=== PATIENT | male | born 1945 | race Caucasian/White ===

== ENCOUNTER 2018-04-28 08:48 | Emergency (ER) | payer MEDICARE, OTHER ==
--- NOTE | 2018-04-28 09:24 | EDM.PDOC ---
ED HPI GENERAL MEDICAL PROBLEM - General Chief Complaint: Respiratory Problem Stated Complaint: BAD COUGH Time Seen by Provider: 04/28/18 09:00 - History of Present Illness INITIAL COMMENTS - FREE TEXT/NARRATIVE: HISTORY AND PHYSICAL: History of present illness: Patient's a 72-year-old white male who presents with a concern of cough and cold symptoms over last several weeks no fever chills nausea vomiting or other complaints patient has history of diabetes and had a comprehensive physical recently that was all unremarkable. Review of systems: As per history of present illness and below otherwise all systems reviewed and negative. Past medical history: As per history of present illness and as reviewed below otherwise noncontributory. Surgical history: As per history of present illness and as reviewed below otherwise noncontributory. Social history: No reported history of drug or alcohol abuse. Family history: As per history of present illness and as reviewed below otherwise noncontributory. Physical exam: HEENT: Atraumatic, normocephalic, pupils reactive, negative for conjunctival pallor or scleral icterus, mucous membranes moist, throat clear, neck supple, nontender, trachea midline. Lungs: Clear to auscultation, breath sounds equal bilaterally, chest nontender. Heart: S1S2, regular, negative for clicks, rubs, or JVD. Abdomen: Soft, nondistended, nontender. Negative for masses or hepatosplenomegaly. Negative for costovertebral tenderness. Pelvis: Stable nontender. Genitourinary: Deferred. Rectal: Deferred. Extremities: Atraumatic, negative for cords or calf pain. Neurovascular unremarkable. Neuro: Awake, alert, oriented. Cranial nerves II through XII unremarkable. Cerebellum unremarkable. Motor and sensory unremarkable throughout. Exam nonfocal. Diagnostics: Chest x-ray Therapeutics: None Impression: #1 pneumonitis Definitive disposition and diagnosis as appropriate pending reevaluation and review of above. - Related Data Allergies Allergy/AdvReac Type Severity Reaction Status Date / Time erythromycin base Allergy Difficulty Verified 04/28/18 08:55 Breathing Home Meds: Home Meds Lisinopril 1 tab PO DAILY 04/28/18 [History] Pioglitazone HCl 1 tab PO DAILY 04/28/18 [History] metFORMIN [Glucophage XR] 1 tab PO BID 04/28/18 [History] Past Medical History Cardiovascular History: Reports: Hypertension Endocrine/Metabolic History: Reports: Diabetes, Type II, Obesity/BMI 30+ Social & Family History - Family History Family Medical History: Noncontributory - Tobacco Use Smoking Status *Q: Never Smoker - Recreational Drug Use Recreational Drug Use: No ED ROS GENERAL - Review of Systems Review Of Systems: ROS reveals no pertinent complaints other than HPI. ED EXAM, GENERAL - Physical Exam Exam: See Below (See dictation) Course - Vital Signs Last Recorded V/S: Last Vital Signs Temp 36.4 C 04/28/18 08:48 Pulse 90 04/28/18 10:06 Resp 18 04/28/18 10:06 BP 155/76 H 04/28/18 10:06 Pulse Ox 92 L 04/28/18 10:06 - Orders/Labs/Meds Orders: Active Orders 24 hr Category Date Time Status Chest 2V [CR] Stat Exams 04/28/18 08:57 Taken Departure - Departure Time of Disposition: 18:48 Disposition: Home, Self-Care 01 Condition: Good Clinical Impression: Acute bronchitis - Discharge Information *PRESCRIPTION DRUG MONITORING PROGRAM REVIEWED*: Not Applicable *COPY OF PRESCRIPTION DRUG MONITORING REPORT IN PATIENT GINA: Not Applicable Instructions: Acute Bronchitis, Adult, [id number] Referrals: PCP,None [Primary Care Provider] - Forms: ED Department Discharge Additional Instructions: The following information is given to patients seen in the emergency department who are being discharged to home. This information is to outline your options for follow-up care. We provide all patients seen in our emergency department with a follow-up referral. The need for follow-up, as well as the timing and circumstances, are variable depending upon the specifics of your emergency department visit. If you don't have a primary care physician on staff, we will provide you with a referral. We always advise you to contact your personal physician following an emergency department visit to inform them of the circumstance of the visit and for follow-up with them and/or the need for any referrals to a consulting specialist. The emergency department will also refer you to a specialist when appropriate. This referral assures that you have the opportunity for followup care with a specialist. All of these measure are taken in an effort to provide you with optimal care, which includes your followup. Under all circumstances we always encourage you to contact your private physician who remains a resource for coordinating your care. When calling for followup care, please make the office aware that this follow-up is from your recent emergency room visit. If for any reason you are refused follow-up, please contact the [facility] emergency department at and asked to speak to the emergency department charge nurse. Antibiotics as prescribed. Continue current medications. Follow up with PCP in the next week. Return for worsening symptoms despite treatment. - My Orders Last 24 Hours: My Active Orders 04/28/18 08:57 Chest 2V [CR] Stat - Assessment/Plan Last 24 Hours: My Active Orders 04/28/18 08:57 Chest 2V [CR] Stat
--- NOTE | 2018-04-30 11:01 | CR ---
EXAM DATE: 04/28/18 PATIENT'S AGE: 72 Patient: COLEEN MONTES Facility: [place], [place] Site . Site : 1945 Study: XRay Chest [id number]/18/2018 9:13:03 AM Ordering Physician: Doctor Walter Final Report: INDICATION: cough/congestion/sob for 2 weeks INDICATION: Shortness of breath. Congestion. TECHNIQUE: Chest 2 views. COMPARISON: None FINDINGS: Cardiovascular and mediastinum: Heart size and vasculature are normal in caliber and appearance. Mediastinum is within normal limits. Lungs and pleural spaces: Linear atelectasis or scarring in the lingular segment. Lungs are otherwise clear. No sign of infiltrate or mass. No sign of pleural effusion. No pneumothorax. Bones and soft tissues: Degenerative disc disease throughout the endplates of the thoracic spine. IMPRESSION: No acute airspace disease. Dictated by Kashif Mosquera MD @ 04/28/2018 9:56:48 AM Dictated by: Kashif Mosquera MD @ 04/28/2018 09:56:55 (Electronic Signature) Report Signed by Proxy. [facility]
== END 2018-04-28 10:06 | disposition home or self-care (01) ==
LOC: MW.ED 08:48
DX: J20.9 Acute bronchitis, unspecified (principal); E11.9 Type 2 diabetes mellitus without complications; J18.9 Pneumonia, unspecified organism; Z79.899 Other long term (current) drug therapy; Z88.1 Allergy status to other antibiotic agents
CPT/HCPCS: 71046; 71046-26; 99283

== ENCOUNTER 2018-12-10 08:00 | Inpatient (IN) | payer MEDICARE ==
[~2018-12-10 08:00] MED LIST: ceFAZolin 2 GM in Premix Bag 1 BAG IV SCH
[2018-12-10] MEDS ORDERED: fentaNYL 100 MCG/2 ML SDV ONE (09:37)
[2018-12-10] MEDS ORDERED: Midazolam 1 MG/ML 2 ML SDV ONE ×2 (09:37→10:58)
[2018-12-10] MEDS ORDERED: Propofol 200 MG/20 ML SDV ONE ×2 (09:37→11:59)
--- NOTE | 2018-12-10 10:03 | PCM.PREANE ---
Preanesthetic Assessment - Anesthesia/Transfusion/Family Hx Anesthesia History: Prior Anesthesia Without Reaction Family History of Anesthesia Reaction: No Transfusion History: No Prior Transfusion(s) - Review of Systems General: No Symptoms Pulmonary: No Symptoms Cardiovascular: No Symptoms Gastrointestinal: No Symptoms Neurological: No Symptoms Other: Reports: None - Physical Assessment O2 Sat by Pulse Oximetry: 95 Respiratory Rate: 15 Vital Signs: Last Vital Signs Temp 97.9 F 12/10/18 09:38 Pulse 81 12/10/18 09:38 Resp 15 12/10/18 09:38 BP 176/81 H 12/10/18 09:38 Pulse Ox 95 12/10/18 09:38 Height: 5 ft 8 in Weight: 132.449 kg Mental Status: Alert & Oriented x3 Dentition: Reports: Normal Dentition ROM/Head Extension: Full Lungs: Clear to Auscultation, Normal Respiratory Effort Cardiovascular: Regular Rate, Regular Rhythm - Lab Values: Laboratory Last Values POC Glucose 109 mg/dL (60-110) 12/10/18 09:29 - Allergies Allergies/Adverse Reactions: Allergies Allergy/AdvReac Type Severity Reaction Status Date / Time erythromycin base Allergy Difficulty Verified 12/10/18 09:57 Breathing ibuprofen Allergy gastric Verified 12/10/18 09:58 bleeding - Acknowledgements Anesthesia Type Planned: Spinal Pt an Appropriate Candidate for the Planned Anesthesia: Yes Alternatives and Risks of Anesthesia Discussed w Pt/Guardian: Yes Pt/Guardian Understands and Agrees with Anesthesia Plan: Yes Additional Comments: PMH: dm2 (109), mo, gerd, htn, PLAN: spinal with sedation PreAnesthesia Questionnaire HEENT History: Reports: Other (See Below) Other HEENT History: wears glasses Cardiovascular History: Reports: Hypertension Other Cardiovascular History: edema to lower extremities, wears conpressions socks Respiratory History: Reports: Other (See Below) Other Respiratory History: hx of bronchitis but states is not chronic, has prescribed inhaler but states has not used for "along time" Gastrointestinal History: Reports: GERD, GI Bleed Genitourinary History: Reports: Renal Calculus Musculoskeletal History: Reports: Fracture, Osteoarthritis Other Musculoskeletal History: hx fx wrist, collarbone and leg Neurological History: Reports: None Psychiatric History: Reports: None Endocrine/Metabolic History: Reports: Diabetes, Type II, Obesity/BMI 30+ Hematologic History: Reports: Anemia Immunologic History: Reports: None Oncologic (Cancer) History: Reports: None Dermatologic History: Reports: Other (See Below) Other Dermatologic History: fungus to "sweaty areas" - Past Surgical History Head Surgeries/Procedures: Reports: None HEENT Surgical History: Reports: Cataract Surgery, Tonsillectomy Cardiovascular Surgical History: Reports: None Respiratory Surgical History: Reports: None GI Surgical History: Reports: Colonoscopy, EGD Male Surgical History: Reports: None Neurological Surgical History: Reports: None Musculoskeletal Surgical History: Reports: None Oncologic Surgical History: Reports: None Dermatological Surgical History: Reports: None - SUBSTANCE USE Smoking Status *Q: Never Smoker Recreational Drug Use History: No - HOME MEDS Home Medications: Home Meds Lisinopril 20 mg PO DAILY 04/28/18 [History] Pioglitazone HCl 30 mg PO DAILY 04/28/18 [History] metFORMIN [Glucophage XR] 1,000 mg PO BID 04/28/18 [History] Acetaminophen [Tylenol Arthritis] 2 tab PO QID PRN 12/05/18 [History] Albuterol [Ventolin HFA] 2 puff INH QID PRN 12/05/18 [History] Calcium Citrate/Vitamin D3 [Citracal + D Maximum Caplet] 1 tab PO DAILY [History] Celecoxib 200 - 400 mg PO DAILY PRN 12/05/18 [History] Cinnamon Bark [Cinnamon] 500 mg PO BID 12/05/18 [History] Ferrous Sulfate [Iron] 325 mg PO DAILY 12/05/18 [History] Furosemide 20 mg PO DAILY 12/05/18 [History] HYDROmorphone [Dilaudid] 1 - 3 tab PO BID PRN 12/05/18 [History] Magnesium 250 mg PO DAILY 12/05/18 [History] Omeprazole 20 mg PO ASDIRECTED PRN 12/05/18 [History] traMADol HCl [Tramadol HCl] 50 mg PO BEDTIME PRN 12/05/18 [History] - CURRENT (IN HOUSE) MEDS Current Meds: Current Medications Cefazolin Sodium/Dextrose 2 gm (/ Premix) 50 mls @ 100 mls/hr IV ONETIME GAYLA Discontinued Medications Fentanyl (Sublimaze) Confirm Administered Dose 100 mcg .ROUTE .STK-MED ONE Stop: 12/10/18 09:38 Midazolam HCl (Versed 1 Mg/Ml) Confirm Administered Dose 2 mg .ROUTE .STK-MED ONE Stop: 12/10/18 09:38 Propofol (Diprivan 20 Ml) Confirm Administered Dose 400 mg .ROUTE .STK-MED ONE Stop: 12/10/18 09:38 Tranexamic Acid (Cyklokapron) 2,000 mg IV ONETIME ONE Stop: 12/10/18 07:04
[2018-12-10] MEDS ORDERED: Sodium Chloride 0.9% 20 ML ONE (10:59)
[2018-12-10] MEDS ORDERED: ceFAZolin 1 GM Vial ONE (10:59)
[2018-12-10] MEDS ORDERED: Lidocaine 2% 5 ML SDV ONE (10:59)
[2018-12-10] MEDS ORDERED: Phenylephrine/Normal Saline 100 MCG/ML 10 ML Syringe ONE (11:14)
[2018-12-10] MEDS ORDERED: Ondansetron 4 MG/2 ML SDV ONE (11:46)
[2018-12-10] MEDS ORDERED: Dexamethasone 4 MG/ML 5 ML MDV ONE (11:46)
[2018-12-10] MEDS ORDERED: Phenylephrine 1% 10 MG/ML SDV ONE (11:47)
[2018-12-10] MEDS ORDERED: fentaNYL 100 MCG/2 ML SDV IVPUSH PRN (12:10)
[2018-12-10] MEDS ORDERED: Atropine 1 MG/ML SDV IVPUSH PRN ×2 (12:10)
[2018-12-10] MEDS ORDERED: Naloxone 0.4 MG/ML Syringe IVPUSH PRN (12:10)
[2018-12-10] MEDS ORDERED: 50% Dextrose in Water 50 ML Syringe IVPUSH PRN (12:10)
[2018-12-10] MEDS ORDERED: EPINEPHrine 1 MG/1 ML Amp IVPUSH PRN (12:10)
[2018-12-10] MEDS ORDERED: Albuterol 0.083% 2.5 MG/3 ML Neb Soln NEB PRN (12:10)
--- NOTE | 2018-12-10 12:30 | PCM.OPNOTE ---
- General Post-Op/Procedure Note Date of Surgery/Procedure: 12/10/18 Operative Procedure(s): right anterior total hip arthroplasty Findings: OA/AVN Pre Op Diagnosis: right hip osteoarthritis Post-Op Diagnosis: same Anesthesia Technique: Moderate Sedation, Spinal Primary Surgeon: Smith Gunn Mai Interior Block Wirer: Carlotta Avila Pathology: femoral head EBL in mLs: 400 Complications: none Condition: Good
[2018-12-10] MEDS ORDERED: diphenhydrAMINE 25 MG Cap PO PRN (12:39)
[2018-12-10] MEDS ORDERED: Bisacodyl 10 MG Supp RECTAL PRN (12:39)
[2018-12-10] MEDS ORDERED: Ondansetron 4 MG/2 ML SDV IV PRN (12:39)
[2018-12-10] MEDS ORDERED: Aluminum Hydroxide/Magnesium Hydroxide/Simethicone Susp 30 ML Cup PO PRN (12:39)
[2018-12-10] MEDS ORDERED: HYDROmorphone 2 MG Tab PO PRN (12:42)
[2018-12-10] MEDS ORDERED: Omeprazole 20 MG Cap.CR PO PRN ×2 (12:42→14:15)
[2018-12-10] MEDS ORDERED: Albuterol 8 GM Inhaler INH PRN (12:42)
[2018-12-10] MEDS ORDERED: traMADol 50 MG Tab PO PRN (12:42)
[2018-12-10] MEDS: Ketorolac 15 MG/ML SDV IVPUSH SCH ×3 (13:14→23:34)
--- NOTE | 2018-12-10 13:23 | PCM.POSTAN ---
POST ANESTHESIA ASSESSMENT - MENTAL STATUS Mental Status: Alert, Oriented - RESPIRATORY Respiratory Status: Respiratory Rate WNL, Airway Patent, O2 Saturation Stable, Supplemental Oxygen - CARDIOVASCULAR CV Status: Pulse Rate WNL, Blood Pressure Stable - GASTROINTESTINAL GI Status: No Symptoms - POST OP HYDRATION Hydration Status: Adequate & Stable
[2018-12-10 14:27] LABS: CHLORIDE,CL 103 mmol/L (98-107); SODIUM,NA 140 mmol/L (136-148)
--- NOTE | 2018-12-10 14:31 | PCM.CONS ---
<Ayanna Menjivar M - Last Filed: 12/10/18 14:48> H&P History of Present Illness - General Date of Service: 12/10/18 Admit Problem/Dx: Admission Diagnosis/Problem Admission Diagnosis/Problem Hip replacement planned Source of Information: Patient, Old Records History Limitations: Reports: No Limitations - History of Present Illness Initial Comments - Free Text/Narative: This 73 year old male admitted for R anterior hip arthroplasty with Dr Stanton, Hospitalist service consulted for medical management. Jone recently arrived to Medical floor from PACU. He is alert and oriented, feeling well. Denies any significant pain. No chest pain or SOB. Working on IS. is at bedside. Reports history of HTN and DM type 2, prediabetes. last A1c is 5.7. Doesnt really check BS at home. BP is well controlled as well, 130/70s. He denies history of CAD and No CVA. PCP, Dr Keita - Related Data Allergies/Adverse Reactions: Allergies Allergy/AdvReac Type Severity Reaction Status Date / Time erythromycin base Allergy Difficulty Verified 12/10/18 09:57 Breathing ibuprofen Allergy gastric Verified 12/10/18 09:58 bleeding Home Medications: Home Meds Lisinopril 20 mg PO DAILY 04/28/18 [History] Pioglitazone HCl 30 mg PO DAILY 04/28/18 [History] metFORMIN [Glucophage XR] 1,000 mg PO BID 04/28/18 [History] Acetaminophen [Tylenol Arthritis] 2 tab PO QID PRN 12/05/18 [History] Albuterol [Ventolin HFA] 2 puff INH QID PRN 12/05/18 [History] Calcium Citrate/Vitamin D3 [Citracal + D Maximum Caplet] 1 tab PO DAILY [History] Celecoxib 200 - 400 mg PO DAILY PRN 12/05/18 [History] Cinnamon Bark [Cinnamon] 500 mg PO BID 12/05/18 [History] Ferrous Sulfate [Iron] 325 mg PO DAILY 12/05/18 [History] Furosemide 20 mg PO DAILY 12/05/18 [History] HYDROmorphone [Dilaudid] 1 - 3 tab PO BID PRN 12/05/18 [History] Magnesium 250 mg PO DAILY 12/05/18 [History] Omeprazole 20 mg PO ASDIRECTED PRN 12/05/18 [History] traMADol HCl [Tramadol HCl] 50 mg PO BEDTIME PRN 12/05/18 [History] Past Medical History HEENT History: Reports: Other (See Below) Other HEENT History: wears glasses Cardiovascular History: Reports: Hypertension Other Cardiovascular History: edema to lower extremities, wears conpressions socks Respiratory History: Reports: Other (See Below) Other Respiratory History: hx of bronchitis but states is not chronic, has prescribed inhaler but states has not used for "along time" Gastrointestinal History: Reports: GERD, GI Bleed Genitourinary History: Reports: Renal Calculus Musculoskeletal History: Reports: Fracture, Osteoarthritis Other Musculoskeletal History: hx fx wrist, collarbone and leg Neurological History: Reports: None Psychiatric History: Reports: None Endocrine/Metabolic History: Reports: Diabetes, Type II, Obesity/BMI 30+ Hematologic History: Reports: Anemia Immunologic History: Reports: None Oncologic (Cancer) History: Reports: None Dermatologic History: Reports: Other (See Below) Other Dermatologic History: fungus to "sweaty areas" - Past Surgical History Head Surgeries/Procedures: Reports: None HEENT Surgical History: Reports: Cataract Surgery, Tonsillectomy Cardiovascular Surgical History: Reports: None Respiratory Surgical History: Reports: None GI Surgical History: Reports: Colonoscopy, EGD Male Surgical History: Reports: None Neurological Surgical History: Reports: None Musculoskeletal Surgical History: Reports: None Oncologic Surgical History: Reports: None Dermatological Surgical History: Reports: None Social & Family History - Family History Family Medical History: Noncontributory - Tobacco Use Smoking Status *Q: Never Smoker - Recreational Drug Use Recreational Drug Use: No H&P Review of Systems - Review of Systems: Review Of Systems: See Below General: Reports: No Symptoms. Denies: Fever, Chills, Malaise, Weakness HEENT: Reports: No Symptoms. Denies: Headaches, Sinus Congestion Pulmonary: Reports: No Symptoms. Denies: Shortness of Breath Cardiovascular: Reports: No Symptoms. Denies: Chest Pain, Lightheadedness, Syncope Gastrointestinal: Reports: No Symptoms. Denies: Abdominal Pain, Black Stool, Bloody Stool, Decreased Appetite, Nausea, Vomiting Genitourinary: Reports: No Symptoms. Denies: Dysuria, Frequency, Burning Musculoskeletal: Reports: No Symptoms Skin: Reports: No Symptoms Psychiatric: Reports: No Symptoms Neurological: Reports: No Symptoms Hematologic/Lymphatic: Reports: No Symptoms Immunologic: Reports: No Symptoms Exam - Exam Exam: See Below - Vital Signs Vital Signs: Last Vital Signs Temp 96.4 F 12/10/18 13:48 Pulse 67 12/10/18 13:48 Resp 16 12/10/18 13:48 BP 127/60 12/10/18 13:48 Pulse Ox 97 12/10/18 13:48 Weight: 132.449 kg - Exam General: Alert, Oriented, Cooperative HEENT: Conjunctiva Clear, Mucosa Moist & [place], Pupils Reactive Lungs: Clear to Auscultation, Normal Respiratory Effort Cardiovascular: Regular Rate, Regular Rhythm GI/Abdominal Exam: Normal Bowel Sounds, Soft, Non-Tender Back Exam: Normal Inspection, Full Range of Motion Extremities: Normal Inspection, Normal Range of Motion, Non-Tender, No Pedal Edema Neuro Extensive - Mental Status: Alert, Oriented x3, Normal Mood/Affect Neuro Extensive - Motor, Sensory, Reflexes: CN II-XII Intact Psychiatric: Alert, Normal Affect, Normal Mood - Patient Data Lab Results Last 24 hrs: Laboratory Results - last 24 hr 12/10/18 12/10/18 12/10/18 Range/Units 09:29 13:50 13:50 WBC 8.34 (4.0-11.0) K/uL RBC 4.53 (4.50-5.90) M/uL Hgb 14.9 (13.0-17.0) g/dL Hct 44.6 (38.0-50.0) % MCV 98.5 H (80.0-98.0) fL MCH 32.9 H (27.0-32.0) pg MCHC 33.4 (31.0-37.0) g/dL RDW Std Deviation 45.6 (28.0-62.0) fl RDW Coeff of Shi 13 (11.0-15.0) % Plt Count 217 (150-400) K/uL MPV 9.80 (7.40-12.00) fL Neut % (Auto) 85.7 H (48.0-80.0) % Lymph % (Auto) 9.4 L (16.0-40.0) % [place] % (Auto) 4.3 (0.0-15.0) % Eos % (Auto) 0.4 (0.0-7.0) % Baso % (Auto) 0.2 (0.0-1.5) % Neut # (Auto) 7.2 H (1.4-5.7) K/uL Lymph # (Auto) 0.8 (0.6-2.4) K/uL [place] # (Auto) 0.4 (0.0-0.8) K/uL Eos # (Auto) 0.0 (0.0-0.7) K/uL Baso # (Auto) 0.0 (0.0-0.1) K/uL Nucleated RBC % 0.0 /100WBC Nucleated RBCs # 0 K/uL Sodium 140 (136-148) mmol/L Potassium 4.8 (3.5-5.1) mmol/L Chloride 103 (98-107) mmol/L Carbon Dioxide 31.5 (21.0-32.0) mmol/L BUN 17 (7.0-18.0) mg/dL Creatinine 0.9 (0.8-1.3) mg/dL Est Cr Clr Drug Dosing 72.83 mL/min Estimated GFR (MDRD) > 60.0 ml/min Glucose 123 H (74-106) mg/dL POC Glucose 109 (60-110) mg/dL Calcium 9.3 (8.5-10.1) mg/dL Result Diagrams: 12/10/18 13:50 12/10/18 13:50 Consult PN Assessment/Plan Procedures: Procedures COMPLETE CBC AUTOMATED (11/19/18) DRAIN/INJ JOINT/BURSA W/O US (09/28/18) ELECTROCARDIOGRAM TRACING (11/19/18) EMERGENCY DEPT VISIT (04/28/18) GLYCOSYLATED HEMOGLOBIN TEST (11/19/18) METABOLIC PANEL TOTAL CA (11/19/18) NEEDLE LOCALIZATION BY XRAY (09/28/18) OFFICE/OUTPATIENT VISIT EST (11/19/18) OFFICE/OUTPATIENT VISIT NEW (07/05/17) PROTHROMBIN TIME (11/19/18) ROUTINE VENIPUNCTURE (11/19/18) URINALYSIS AUTO W/SCOPE (11/19/18) X-RAY EXAM CHEST 2 VIEWS (11/19/18) X-RAY EXAM HIP UNI 2-3 VIEWS (07/05/17) X-RAY EXAM OF FOOT (07/05/17) (1) Diabetes mellitus type 2 in obese SNOMED Code(s): 47731466 Code(s): E11.69 - TYPE 2 DIABETES MELLITUS WITH OTHER SPECIFIED COMPLICATION ; E66.9 - OBESITY, UNSPECIFIED Current Visit: Yes (2) Hypertension SNOMED Code(s): 47164538 Code(s): I10 - ESSENTIAL (PRIMARY) HYPERTENSION Current Visit: Yes Qualifiers: Hypertension type: essential hypertension Qualified Code(s): I10 - Essential (primary) hypertension (3) Morbid obesity with BMI of 40.0-44.9, adult SNOMED Code(s): 362071124, 90027820914214 Code(s): E66.01 - MORBID (SEVERE) OBESITY DUE TO EXCESS CALORIES; Z68.41 - BODY MASS INDEX (BMI) 40.0-44.9, ADULT Current Visit: Yes (4) S/P hip replacement SNOMED Code(s): 584244087, 771776935, 846307856, 192158352 Code(s): Z96.649 - PRESENCE OF UNSPECIFIED ARTIFICIAL HIP JOINT Current Visit: Yes Problem List Initiated/Reviewed/Updated: Yes Plan: This 73 year old male admitted with R anterior hip arthroplasty, HOspitalist service consulted 1. R anterior hip arthroplasty: Orders per Orthopedics 2. HTN: [place]. Continue Lisinopril 3. DM Type 2: Prediabetic, does not monitor BS at home. Metformin on hold. Novolog SSI, low dose. 4. Peripheral edema: Continue Lasix. Improves when he is up moving, currently he reports it is good. VTE prophylaxis: Recommended when deemed appropriate by Orthopedics <Fer Paz - Last Filed: 12/10/18 17:30> H&P History of Present Illness - General Admit Problem/Dx: Admission Diagnosis/Problem Admission Diagnosis/Problem Hip replacement planned - History of Present Illness Initial Comments - Free Text/Narative: I have examined the patient independently of Eleonora Ge DO, medical reviewer. I have discussed the case with her. I have reviewed and agree with the plan of care as outlined by her. Please see orders. I would like to thank Dr. Stanton for participation in the care of his patient. Internal Medicine will follow-up. Hold metformin for now. Exam - Vital Signs Vital Signs: Last Vital Signs Temp 35.8 C 12/10/18 13:48 Pulse 67 04/01/19 13:48 Resp 16 12/10/18 13:48 BP 127/60 12/10/18 13:48 Pulse Ox 97 12/10/18 13:48 - Patient Data Lab Results Last 24 hrs: Laboratory Results - last 24 hr 12/10/18 12/10/18 12/10/18 Range/Units 09:29 13:50 13:50 WBC 8.34 (4.0-11.0) K/uL RBC 4.53 (4.50-5.90) M/uL Hgb 14.9 (13.0-17.0) g/dL Hct 44.6 (38.0-50.0) % MCV 98.5 H (80.0-98.0) fL MCH 32.9 H (27.0-32.0) pg MCHC 33.4 (31.0-37.0) g/dL RDW Std Deviation 45.6 (28.0-62.0) fl RDW Coeff of Shi 13 (11.0-15.0) % Plt Count 217 (150-400) K/uL MPV 9.80 (7.40-12.00) fL Neut % (Auto) 85.7 H (48.0-80.0) % Lymph % (Auto) 9.4 L (16.0-40.0) % [place] % (Auto) 4.3 (0.0-15.0) % Eos % (Auto) 0.4 (0.0-7.0) % Baso % (Auto) 0.2 (0.0-1.5) % Neut # (Auto) 7.2 H (1.4-5.7) K/uL Lymph # (Auto) 0.8 (0.6-2.4) K/uL [place] # (Auto) 0.4 (0.0-0.8) K/uL Eos # (Auto) 0.0 (0.0-0.7) K/uL Baso # (Auto) 0.0 (0.0-0.1) K/uL Nucleated RBC % 0.0 /100WBC Nucleated RBCs # 0 K/uL Sodium 140 (136-148) mmol/L Potassium 4.8 (3.5-5.1) mmol/L Chloride 103 (98-107) mmol/L Carbon Dioxide 31.5 (21.0-32.0) mmol/L BUN 17 (7.0-18.0) mg/dL Creatinine 0.9 (0.8-1.3) mg/dL Est Cr Clr Drug Dosing 72.83 mL/min Estimated GFR (MDRD) > 60.0 ml/min Glucose 123 H (74-106) mg/dL POC Glucose 109 (60-110) mg/dL Calcium 9.3 (8.5-10.1) mg/dL 12/10/18 Range/Units 16:44 WBC (4.0-11.0) K/uL RBC (4.50-5.90) M/uL Hgb (13.0-17.0) g/dL Hct (38.0-50.0) % MCV (80.0-98.0) fL MCH (27.0-32.0) pg MCHC (31.0-37.0) g/dL RDW Std Deviation (28.0-62.0) fl RDW Coeff of Shi (11.0-15.0) % Plt Count (150-400) K/uL MPV (7.40-12.00) fL Neut % (Auto) (48.0-80.0) % Lymph % (Auto) (16.0-40.0) % [place] % (Auto) (0.0-15.0) % Eos % (Auto) (0.0-7.0) % Baso % (Auto) (0.0-1.5) % Neut # (Auto) (1.4-5.7) K/uL Lymph # (Auto) (0.6-2.4) K/uL [place] # (Auto) (0.0-0.8) K/uL Eos # (Auto) (0.0-0.7) K/uL Baso # (Auto) (0.0-0.1) K/uL Nucleated RBC % /100WBC Nucleated RBCs # K/uL Sodium (136-148) mmol/L Potassium (3.5-5.1) mmol/L Chloride (98-107) mmol/L Carbon Dioxide (21.0-32.0) mmol/L BUN (7.0-18.0) mg/dL Creatinine (0.8-1.3) mg/dL Est Cr Clr Drug Dosing mL/min Estimated GFR (MDRD) ml/min Glucose (74-106) mg/dL POC Glucose 227 H (60-110) mg/dL Calcium (8.5-10.1) mg/dL Result Diagrams: 12/10/18 13:50 12/10/18 13:50 Consult PN Assessment/Plan Procedures: Procedures COMPLETE CBC AUTOMATED (11/19/18) DRAIN/INJ JOINT/BURSA W/O US (09/28/18) ELECTROCARDIOGRAM TRACING (11/19/18) EMERGENCY DEPT VISIT (04/28/18) GLYCOSYLATED HEMOGLOBIN TEST (11/19/18) METABOLIC PANEL TOTAL CA (11/19/18) NEEDLE LOCALIZATION BY XRAY (09/28/18) OFFICE/OUTPATIENT VISIT EST (11/19/18) OFFICE/OUTPATIENT VISIT NEW (07/05/17) PROTHROMBIN TIME (11/19/18) ROUTINE VENIPUNCTURE (11/19/18) URINALYSIS AUTO W/SCOPE (11/19/18) X-RAY EXAM CHEST 2 VIEWS (11/19/18) X-RAY EXAM HIP UNI 2-3 VIEWS (07/05/17) X-RAY EXAM OF FOOT (07/05/17)
[2018-12-10] MEDS: Acetaminophen/HYDROcodone 325-7.5 MG Tab PO PRN ×3 (14:42→23:35)
--- NOTE | 2018-12-10 15:57 | CR ---
EXAMINATION: Right hip HISTORY: Total hip replacement COMPARISON: 09/28/2018 TECHNIQUE: 4 images provided FINDINGS/IMPRESSION: Operative control films demonstrate placement of right total hip hardware in good position and alignment.
[2018-12-10] MEDS: Insulin Aspart 100 Units/ML 3 ML Pen SUBCUT SCH (17:40)
[2018-12-10] MEDS: ceFAZolin 2 GM in Premix Bag 1 BAG IV SCH (18:27)
[2018-12-10] MEDS: Docusate Sodium 100 MG Cap PO SCH ×2 (19:32→21:37)
--- NOTE | 2018-12-10 20:32 | OR ---
SURGEON: Smith Stanton MD DATE OF PROCEDURE: 12/10/2018 PRIMARY SURGEON: Smith Stanton MD. MILKING WORKER: Carlotta Avila PA-C. PREOPERATIVE DIAGNOSIS: Right hip osteoarthritis. POSTOPERATIVE DIAGNOSIS: Right hip osteoarthritis. OPERATION PERFORMED: Right anterior total hip arthroplasty. ANESTHESIA: Spinal with sedation. COMPLICATIONS: None. ESTIMATED BLOOD LOSS: 400 mL. SPECIMENS: Femoral head. IMPLANTS: Charles Continuum trabecular metal shell, cluster holes of 54-mm outer diameter, Vivacit-E neutral liner of 36-mm inner diameter, ML taper press-fit stem, size 15 extended offset, and Biolox delta ceramic femoral head 36-mm diameter, +7 neck length. INDICATIONS: The patient is a 73-year-old male with severe arthritis with severe limitation in his activity. He wished to undergo replacement. He understands the risks, benefits, alternatives, and complications including but not limited to infection, neurovascular injury, continued pain, DVT, pulmonary embolism, stroke, CA, , leg-length discrepancy, fracture, and dislocation and he wished to proceed. DESCRIPTION OF OPERATION: The patient was seen in the preoperative area and the operative extremity was marked. The patient was transferred to the operating room and a spinal anesthetic was given. He was placed supine on the Rosario table, and sedation was given. The leg was placed in the leg bars with a narrow perineal post. He received preoperative antibiotics with Ancef 2 g and TXA. The right hip was prepped and draped in a sterile fashion using alcohol followed by ChloraPrep with Ioban covering. A formal time-out was taken identifying the correct patient, procedure, and extremity. An 8-cm incision starting lateral to the ASIS going obliquely down to the femur was made. Dissection was carried down to the subcutaneous tissues. Hemostasis was obtained. The fascia overlying the TFL lateral to the femoral cutaneous nerve was opened, and the interval between the TFL and the sartorius deep between the abductors and rectus was opened. The Anton retractor was placed. The indirect head of the rectus was released. The anterior vessels were coagulated and the vastus lateralis fascia was opened. The capsule was held and tagged with 2 sutures, and then the deep retractors were placed. The neck was cut from the saddle region to 1 cm below the lesser trochanter, and the head was removed. There was some collapse with possible avascular necrosis, but severe osteoarthritis and severe synovitis in the hip joint. The labral remnants were removed. The inferior capsule was released as well as portions of the iliopsoas tendon due to severe tightness. The pulvinar was removed. Head measured approximately 48 to 49. It was sequentially reamed from 47 mm up to 53 mm, going superior medial with good fit and fill. There was excellent fit and fill, therefore, Continuum trabecular metal shell with cluster holes was placed in 10 degrees of anteversion and 40 degrees of abduction. There was excellent press fit and a neutral liner was placed. There was noted to be about 3 mm to 4 mm of bone overhanging around the entire rim. The femoral lift was placed. The leg was externally rotated, abducted, and extended. The central canal finder was utilized. It was sequentially broached for a size 4, following the [place] version going up to size 15. There was a small amount of calcar plane in the middle. This had excellent fit and fill. The hip was trialed and we reduced with a +3.5 neck length extended offset. Printed overlay technique showed the leg lengths to be slightly short compared to the opposite side. On examination, there was no Shuck and there was stable range of motion. The hip was then dislocated. The final size 15 extended offset was impacted, following the [place] version. This had excellent press fit. The trial was reduced with a +7 neck length. Printed overlay technique showed equal leg length and offset. Therefore, the hip was dislocated, and the final +7 36-mm head was impacted. The hip was relocated with stable range of motion with no Shuck. Two tagged sutures were tied together. WOUND CLOSURE: The wound was thoroughly irrigated throughout the case. The fascia was closed with #1 Vicryl, the fat layer with #1 Vicryl, the subcutaneous tissues with 2-0 Stratafix, and the skin with running 4-0 Monocryl. Dermabond tape and an Aquacel dressing were placed. CONDITION: The patient was transferred to recovery room in stable condition. COUNT RESULTS: Sponge and needle counts were correct at the end of the case. No complications. ANALILIA / CHESTER /[id number]
[2018-12-10] MEDS ORDERED: metFORMIN 500 MG Tab.ER PO SCH (21:00)
[2018-12-11] MEDS: Ketorolac 15 MG/ML SDV IVPUSH SCH (00:12)
[2018-12-11] MEDS: Acetaminophen/HYDROcodone 325-7.5 MG Tab PO PRN ×2 (03:33→07:54)
[2018-12-11] MEDS: ceFAZolin 2 GM in Premix Bag 1 BAG IV SCH (03:34)
[2018-12-11 05:58] LABS: CHLORIDE,CL 101 mmol/L (98-107); SODIUM,NA 137 mmol/L (136-148)
--- NOTE | 2018-12-11 06:09 | PCM48HPAN ---
Post Anesthesia Note - EVALUATION WITHIN 48HRS OF ANESTHETIC Vital Signs in Normal Range: Yes Patient Participated in Evaluation: Yes Respiratory Function Stable: Yes Airway Patent: Yes Cardiovascular Function Stable: Yes Hydration Status Stable: Yes Pain Control Satisfactory: Yes Nausea and Vomiting Control Satisfactory: Yes Mental Status Recovered: Yes Resp Rate: 16 - COMMENTS/OBSERVATIONS Free Text/Narrative:: Hyperglycemia.
--- NOTE | 2018-12-11 07:12 | PCM.SN ---
- Free Text/Narrative Note: S: doing well, ambulating in hallway. pain is controlled. no chest pain/SOB. tolerating PO well. O: afebrile, vital signs stable dressing clean/dry/intact no swelling in thigh or distally. sensation intact in leg with 2+ DP and active motor strength HGB 13.1 A/P POD #1 right anterior BECKI - full weight bearing with walker - ecotrin/SCDs for DVT prophylaxis - pain control - home today, f/u 2 weeks
[2018-12-11] MEDS: Insulin Aspart 100 Units/ML 3 ML Pen SUBCUT SCH (08:09)
[2018-12-11] MEDS: Docusate Sodium 100 MG Cap PO SCH (08:24)
[2018-12-11] MEDS ORDERED: Celecoxib 100 MG Cap PO SCH (09:00)
[2018-12-11] MEDS ORDERED: Calcium Carbonate/Vitamin D3 1500 MG-400 Units Tab PO SCH (09:00)
[2018-12-11] MEDS ORDERED: Pioglitazone 15 MG Tab PO SCH (09:00)
[2018-12-11] MEDS ORDERED: Aspirin 325 MG Tab.EC PO SCH (09:00)
[2018-12-11] MEDS ORDERED: Ferrous Sulfate 325 MG Tab PO SCH (09:00)
[2018-12-11] MEDS ORDERED: Furosemide 20 MG Tab PO SCH (09:00)
[2018-12-11] MEDS ORDERED: Lisinopril 10 MG Tab PO SCH (09:00)
[2018-12-11] MEDS ORDERED: Magnesium Oxide 400 MG Tab PO SCH (09:00)
--- NOTE | 2018-12-11 10:23 | PCM.CONSN ---
- General Info Date of Service: 12/11/18 Admission Dx/Problem (Free Text): Admission Diagnosis/Problem Admission Diagnosis/Problem Hip replacement planned Subjective Update: Sitting up in the chair, no pain. Reports feeling good and eager to go home. NO chest pain or SOB. Functional Status: Reports: Pain Controlled, Tolerating Diet, Ambulating - Review of Systems General: Reports: No Symptoms. Denies: Fever, Weakness, Fatigue HEENT: Reports: No Symptoms. Denies: Headaches, Sore Throat Pulmonary: Reports: No Symptoms. Denies: Shortness of Breath, Cough Cardiovascular: Reports: No Symptoms. Denies: Chest Pain, Edema Gastrointestinal: Reports: No Symptoms. Denies: Abdominal Pain, Nausea, Vomiting Genitourinary: Reports: No Symptoms Musculoskeletal: Reports: No Symptoms Skin: Reports: No Symptoms Neurological: Reports: No Symptoms Psychiatric: Reports: No Symptoms - Patient Data Vitals - Most Recent: Last Vital Signs Temp 97.8 F 12/11/18 07:31 Pulse 86 12/11/18 07:31 Resp 18 12/11/18 07:31 BP 144/65 H 12/11/18 08:23 Pulse Ox 92 L 12/11/18 07:31 Weight - Most Recent: 132.449 kg I&O - Last 24 Hours: Intake & Output 12/10/18 12/11/18 12/11/18 22:59 06:59 14:59 Intake Total 550 Balance 550 Lab Results Last 24 Hours: Laboratory Results - last 24 hr 12/10/18 12/10/18 12/10/18 Range/Units 13:50 13:50 16:44 WBC 8.34 (4.0-11.0) K/uL RBC 4.53 (4.50-5.90) M/uL Hgb 14.9 (13.0-17.0) g/dL Hct 44.6 (38.0-50.0) % MCV 98.5 H (80.0-98.0) fL MCH 32.9 H (27.0-32.0) pg MCHC 33.4 (31.0-37.0) g/dL RDW Std Deviation 45.6 (28.0-62.0) fl RDW Coeff of Shi 13 (11.0-15.0) % Plt Count 217 (150-400) K/uL MPV 9.80 (7.40-12.00) fL Neut % (Auto) 85.7 H (48.0-80.0) % Lymph % (Auto) 9.4 L (16.0-40.0) % [place] % (Auto) 4.3 (0.0-15.0) % Eos % (Auto) 0.4 (0.0-7.0) % Baso % (Auto) 0.2 (0.0-1.5) % Neut # (Auto) 7.2 H (1.4-5.7) K/uL Lymph # (Auto) 0.8 (0.6-2.4) K/uL [place] # (Auto) 0.4 (0.0-0.8) K/uL Eos # (Auto) 0.0 (0.0-0.7) K/uL Baso # (Auto) 0.0 (0.0-0.1) K/uL Nucleated RBC % 0.0 /100WBC Nucleated RBCs # 0 K/uL Sodium 140 (136-148) mmol/L Potassium 4.8 (3.5-5.1) mmol/L Chloride 103 (98-107) mmol/L Carbon Dioxide 31.5 (21.0-32.0) mmol/L BUN 17 (7.0-18.0) mg/dL Creatinine 0.9 (0.8-1.3) mg/dL Est Cr Clr Drug Dosing 72.83 mL/min Estimated GFR (MDRD) > 60.0 ml/min Glucose 123 H (74-106) mg/dL POC Glucose 227 H (60-110) mg/dL Calcium 9.3 (8.5-10.1) mg/dL 12/11/18 12/11/18 12/11/18 Range/Units 04:38 04:38 06:47 WBC (4.0-11.0) K/uL RBC (4.50-5.90) M/uL Hgb 13.1 (13.0-17.0) g/dL Hct 38.9 (38.0-50.0) % MCV (80.0-98.0) fL MCH (27.0-32.0) pg MCHC (31.0-37.0) g/dL RDW Std Deviation (28.0-62.0) fl RDW Coeff of Shi (11.0-15.0) % Plt Count (150-400) K/uL MPV (7.40-12.00) fL Neut % (Auto) (48.0-80.0) % Lymph % (Auto) (16.0-40.0) % [place] % (Auto) (0.0-15.0) % Eos % (Auto) (0.0-7.0) % Baso % (Auto) (0.0-1.5) % Neut # (Auto) (1.4-5.7) K/uL Lymph # (Auto) (0.6-2.4) K/uL [place] # (Auto) (0.0-0.8) K/uL Eos # (Auto) (0.0-0.7) K/uL Baso # (Auto) (0.0-0.1) K/uL Nucleated RBC % /100WBC Nucleated RBCs # K/uL Sodium 137 (136-148) mmol/L Potassium 4.5 (3.5-5.1) mmol/L Chloride 101 (98-107) mmol/L Carbon Dioxide 30.0 (21.0-32.0) mmol/L BUN 25 H (7.0-18.0) mg/dL Creatinine 1.0 (0.8-1.3) mg/dL Est Cr Clr Drug Dosing 65.55 mL/min Estimated GFR (MDRD) > 60.0 ml/min Glucose 117 H (74-106) mg/dL POC Glucose 116 H (60-110) mg/dL Calcium 9.0 (8.5-10.1) mg/dL Med Orders - Current: Current Medications Hydrocodone Bitart/Acetaminophen ([place] 325-7.5 Mg) 1 - 2 tab PO Q4H PRN PRN Reason: Pain Last Admin: 12/11/18 07:54 Dose: 2 tab Al Hydroxide/Mg Hydroxide (Mag-Al Plus) 30 ml PO Q4H PRN PRN Reason: indigestion Albuterol (Ventolin Hfa) 0 gm INH QID PRN PRN Reason: Shortness of Breath Aspirin (Ecotrin) 325 mg PO BID [facility] Last Admin: 12/11/18 08:20 Dose: 325 mg Bisacodyl (Dulcolax) 10 mg RECTAL DAILY PRN PRN Reason: Constipation Calcium Carbonate (Caltrate 600+D 1500 Mg-400 Units) 1 tab PO DAILY [facility] Last Admin: 12/11/18 08:25 Dose: 1 tab Celecoxib (Celebrex) 200 mg PO DAILY [facility] Last Admin: 12/11/18 08:20 Dose: 200 mg Diphenhydramine HCl (Benadryl) 25 - 50 mg PO Q6H PRN PRN Reason: Itching Docusate Sodium (Colace) 100 mg PO BID [facility] Last Admin: 12/11/18 08:24 Dose: 100 mg Ferrous Sulfate (Ferrous Sulfate) 325 mg PO DAILY [facility] Last Admin: 12/11/18 08:20 Dose: 325 mg Furosemide (Lasix) 20 mg PO DAILY [facility] Last Admin: 12/11/18 08:20 Dose: 20 mg Hydromorphone HCl (Dilaudid) 2 - 6 mg PO BID PRN PRN Reason: Pain Last Admin: 12/10/18 16:53 Dose: 2 mg Insulin Aspart (Novolog) 0 unit SUBCUT TIDAC [facility]; Protocol Last Admin: 12/11/18 08:09 Dose: Not Given Lisinopril (Prinivil) 20 mg PO DAILY [facility] Last Admin: 12/11/18 08:23 Dose: 20 mg Magnesium Oxide (Magnesium Oxide) 400 mg PO DAILY [facility] Last Admin: 12/11/18 08:24 Dose: 400 mg Morphine Sulfate (Morphine Sulfate) 1 - 3 mg IV Q3H PRN PRN Reason: Pain Omeprazole (Omeprazole) 20 mg PO DAILY PRN PRN Reason: Heartburn Ondansetron HCl (Zofran) 4 mg IV Q6HR PRN PRN Reason: NAUSEA/VOMITING Tramadol HCl (Ultram) 50 mg PO BEDTIME PRN PRN Reason: Pain Discontinued Medications Albuterol (Proventil Neb Soln) 2.5 mg NEB ONETIME PRN PRN Reason: Wheezing Atropine Sulfate (Atropine 1 Mg/Ml) 0.5 mg IVPUSH ASDIRECTED PRN PRN Reason: Hypo-perfusion Atropine Sulfate (Atropine 1 Mg/Ml) 1 mg IVPUSH ASDIRECTED PRN PRN Reason: Hypo-Perfusion Cefazolin Sodium (Ancef) Confirm Administered Dose 2 gm .ROUTE .[facility]-MED ONE Stop: 12/10/18 11:00 Dexamethasone (Dexamethasone) Confirm Administered Dose 20 mg .ROUTE .[facility]-MED ONE Stop: 12/10/18 11:47 Dextrose/Water (Dextrose 50% In Water) 50 ml IVPUSH ASDIRECTED PRN PRN Reason: Hypoglycemia Epinephrine HCl (Adrenalin) 1 mg IVPUSH ASDIRECTED PRN PRN Reason: ACLS Guidelines Fentanyl (Sublimaze) Confirm Administered Dose 100 mcg .ROUTE .[facility]-MED ONE Stop: 12/10/18 09:38 Fentanyl (Sublimaze) 50 mcg IVPUSH Q5M PRN PRN Reason: Pain Cefazolin Sodium/Dextrose 2 gm (/ Premix) 50 mls @ 100 mls/hr IV ONETIME [facility] Sodium Chloride (Normal Saline) Confirm Administered Dose 20 mls @ as directed .ROUTE .[facility]-MED ONE Stop: 12/10/18 11:00 Cefazolin Sodium/Dextrose 2 gm (/ Premix) 50 mls @ 100 mls/hr IV Q8H [facility] Stop: 12/11/18 03:29 Last Admin: 12/11/18 03:34 Dose: 100 mls/hr Ketorolac Tromethamine (Toradol) 15 mg IVPUSH Q6H [facility] Stop: 12/11/18 05:00 Last Admin: 12/11/18 00:12 Dose: Not Given Lidocaine (Xylocaine-Mpf 2%) Confirm Administered Dose 5 ml .ROUTE .[facility]-MED ONE Stop: 12/10/18 11:00 Metformin HCl (Glucophage Xr) 1,000 mg PO BID [facility] Midazolam HCl (Versed 1 Mg/Ml) Confirm Administered Dose 2 mg .ROUTE .[facility]-MED ONE Stop: 12/10/18 09:38 Midazolam HCl (Versed 1 Mg/Ml) Confirm Administered Dose 2 mg .ROUTE .[facility]-MED ONE Stop: 12/10/18 10:59 Naloxone HCl (Narcan) 0.1 mg IVPUSH ASDIRECTED PRN PRN Reason: Respiratory Depression Omeprazole (Omeprazole) 20 mg PO ASDIRECTED PRN PRN Reason: Heartburn Ondansetron HCl (Zofran) Confirm Administered Dose 4 mg .ROUTE .[facility]-MED ONE Stop: 12/10/18 11:47 Phenylephrine HCl (Phenylephrine In Ns 100 Mcg/Ml) Confirm Administered Dose 1 mg .ROUTE .[facility]-MED ONE Stop: 12/10/18 11:15 Phenylephrine HCl (Kamar-Synephrine) Confirm Administered Dose 10 mg .ROUTE .[facility]- MED ONE Stop: 12/10/18 11:48 Pioglitazone HCl (Actos) 30 mg PO DAILY [facility] Propofol (Diprivan 20 Ml) Confirm Administered Dose 400 mg .ROUTE .[facility]-MED ONE Stop: 12/10/18 09:38 Propofol (Diprivan 20 Ml) Confirm Administered Dose 200 mg .ROUTE .[facility]-MED ONE Stop: 12/10/18 12:00 Tranexamic Acid (Cyklokapron) 2,000 mg IV ONETIME ONE Stop: 12/10/18 07:04 Last Admin: 12/10/18 11:10 Dose: 2,000 mg Tranexamic Acid (Cyklokapron) Confirm Administered Dose 2,000 mg .ROUTE .[facility]- MED ONE Stop: 12/10/18 11:19 - Exam General: Alert, Oriented, Cooperative Lungs: Clear to Auscultation, Normal Respiratory Effort Cardiovascular: Regular Rate, Regular Rhythm GI/Abdominal Exam: Normal Bowel Sounds, Soft, Non-Tender Extremities: Normal Inspection, Normal Range of Motion, Non-Tender, No Pedal Edema Neurological: No New Focal Deficit Psy/Mental Status: Alert, Normal Affect, Normal Mood Consult PN Assessment/Plan Procedures: Procedures COMPLETE CBC AUTOMATED (11/19/18) DRAIN/INJ JOINT/BURSA W/O US (09/28/18) ELECTROCARDIOGRAM TRACING (11/19/18) EMERGENCY DEPT VISIT (04/28/18) GLYCOSYLATED HEMOGLOBIN TEST (11/19/18) METABOLIC PANEL TOTAL CA (11/19/18) NEEDLE LOCALIZATION BY XRAY (09/28/18) OFFICE/OUTPATIENT VISIT EST (11/19/18) OFFICE/OUTPATIENT VISIT NEW (07/05/17) PROTHROMBIN TIME (11/19/18) ROUTINE VENIPUNCTURE (11/19/18) URINALYSIS AUTO W/SCOPE (11/19/18) X-RAY EXAM CHEST 2 VIEWS (11/19/18) X-RAY EXAM HIP UNI 2-3 VIEWS (07/05/17) X-RAY EXAM OF FOOT (07/05/17) (1) Diabetes mellitus type 2 in obese SNOMED Code(s): 57176722 Code(s): E11.69 - TYPE 2 DIABETES MELLITUS WITH OTHER SPECIFIED COMPLICATION ; E66.9 - OBESITY, UNSPECIFIED Current Visit: Yes (2) Hypertension SNOMED Code(s): 08017311 Code(s): I10 - ESSENTIAL (PRIMARY) HYPERTENSION Current Visit: Yes Qualifiers: Hypertension type: essential hypertension Qualified Code(s): I10 - Essential (primary) hypertension (3) Morbid obesity with BMI of 40.0-44.9, adult SNOMED Code(s): 699871636, 96193150513665 Code(s): E66.01 - MORBID (SEVERE) OBESITY DUE TO EXCESS CALORIES; Z68.41 - BODY MASS INDEX (BMI) 40.0-44.9, ADULT Current Visit: Yes (4) S/P hip replacement SNOMED Code(s): 236619468, 904512786, 313765769, 936240725 Code(s): Z96.649 - PRESENCE OF UNSPECIFIED ARTIFICIAL HIP JOINT Current Visit: Yes Problem List Initiated/Reviewed/Updated: No My Orders Last 24 Hours: My Active Orders 12/10/18 15:25 Blood Glucose Check, Bedside [RC] TIDAC 12/10/18 17:00 Insulin Aspart [NovoLOG] See Protocol SUBCUT TIDAC Plan: This 73 year old male admitted with R anterior hip arthroplasty, HOspitalist service consulted 1. R anterior hip arthroplasty: Orders per Orthopedics 2. HTN: Stable. Continue Lisinopril 3. DM Type 2: Stable, continue Metformin at discharge. Novolog SSI, low dose. 4. Peripheral edema: Continue Lasix. VTE prophylaxis: Recommended when deemed appropriate by Orthopedics
--- NOTE | 2018-12-11 17:23 | PCM.DCSUM1 ---
Discharge Summary - Hospital Course Brief History: Patient was admitted for elective right hip replacement. Postoperatively he was made to the floor his pain was controlled his diet was advanced and he participated in physical therapy. He did very well postoperatively and subsequently discharged home on postoperative day #1 with aspirin for DVT prophylaxis. He'll follow-up in clinic in 2 weeks. Diagnosis: Stroke: No - Discharge Data Discharge Date: 12/11/18 Discharge Disposition: Home, Self-Care 01 Condition: Good - Patient Summary/Data Operative Procedure(s) Performed: right anterior total hip arthroplasty Consults: Consultations 12/10/18 12:38 Consult to Physician [CONS] Routine PT Evaluation and Treatment [CONS] Routine - Patient Instructions Diet: Usual Diet as Tolerated Activity: Apply Ice, Full Weight Bearing Driving: Do Not Drive Showering/Bathing: May Shower Wound/Incision Care: Do NOT Change Dressing Notify Provider of: Fever, Swelling and Redness, Drainage - Discharge Plan *PRESCRIPTION DRUG MONITORING PROGRAM REVIEWED*: No *COPY OF PRESCRIPTION DRUG MONITORING REPORT IN PATIENT GINA: No Home Medications: Home Meds Lisinopril 20 mg PO DAILY 04/28/18 [History] Pioglitazone HCl 30 mg PO DAILY 04/28/18 [History] metFORMIN [Glucophage XR] 1,000 mg PO BID 04/28/18 [History] Acetaminophen [Tylenol Arthritis] 2 tab PO QID PRN 12/05/18 [History] Albuterol [Ventolin HFA] 2 puff INH QID PRN 12/05/18 [History] Calcium Citrate/Vitamin D3 [Citracal + D Maximum Caplet] 1 tab PO DAILY [History] Celecoxib 200 - 400 mg PO DAILY PRN 12/05/18 [History] Cinnamon Bark [Cinnamon] 500 mg PO BID 12/05/18 [History] Ferrous Sulfate [Iron] 325 mg PO DAILY 12/05/18 [History] Furosemide 20 mg PO DAILY 12/05/18 [History] HYDROmorphone [Dilaudid] 1 - 3 tab PO BID PRN 12/05/18 [History] Magnesium 250 mg PO DAILY 12/05/18 [History] Omeprazole 20 mg PO ASDIRECTED PRN 12/05/18 [History] traMADol HCl [Tramadol HCl] 50 mg PO BEDTIME PRN 12/05/18 [History] Patient Handouts: Acetaminophen; Hydrocodone tablets or capsules, Total Hip Replacement, Pstd-vm-Qhmh, Docusate capsules, Aspirin capsules or tablets extended release Referrals: Carlotta Avila PA [Physician [facility]ust[facility]] - 12/25/18 9:20 am - Discharge Summary/Plan Comment DC Time >30 min.: No - Patient Data Vitals - Most Recent: Last Vital Signs Temp 36.6 C 12/11/18 07:31 Pulse 86 12/11/18 07:31 Resp 18 12/11/18 07:31 BP 144/65 H 12/11/18 08:23 Pulse Ox 92 L 12/11/18 07:31 Weight - Most Recent: 132.449 kg I&O - Last 24 hours: Intake & Output 12/11/18 12/11/18 12/11/18 06:59 14:59 22:59 Intake Total 240 Output Total 150 Balance 90 Lab Results - Last 24 hrs: Laboratory Results - last 24 hr 12/11/18 12/11/18 12/11/18 Range/Units 04:38 04:38 06:47 Hgb 13.1 (13.0-17.0) g/dL Hct 38.9 (38.0-50.0) % Sodium 137 (136-148) mmol/L Potassium 4.5 (3.5-5.1) mmol/L Chloride 101 (98-107) mmol/L Carbon Dioxide 30.0 (21.0-32.0) mmol/L BUN 25 H (7.0-18.0) mg/dL Creatinine 1.0 (0.8-1.3) mg/dL Est Cr Clr Drug Dosing 65.55 mL/min Estimated GFR (MDRD) > 60.0 ml/min Glucose 117 H (74-106) mg/dL POC Glucose 116 H (60-110) mg/dL Calcium 9.0 (8.5-10.1) mg/dL Med Orders - Current: Current Medications Discontinued Medications Hydrocodone Bitart/Acetaminophen ([place] 325-7.5 Mg) 1 - 2 tab PO Q4H PRN PRN Reason: Pain Last Admin: 12/11/18 07:54 Dose: 2 tab Al Hydroxide/Mg Hydroxide (Mag-Al Plus) 30 ml PO Q4H PRN PRN Reason: indigestion Albuterol (Proventil Neb Soln) 2.5 mg NEB ONETIME PRN PRN Reason: Wheezing Albuterol (Ventolin Hfa) 0 gm INH QID PRN PRN Reason: Shortness of Breath Aspirin (Ecotrin) 325 mg PO BID [facility] Last Admin: 12/11/18 08:20 Dose: 325 mg Atropine Sulfate (Atropine 1 Mg/Ml) 0.5 mg IVPUSH ASDIRECTED PRN PRN Reason: Hypo-perfusion Atropine Sulfate (Atropine 1 Mg/Ml) 1 mg IVPUSH ASDIRECTED PRN PRN Reason: Hypo-Perfusion Bisacodyl (Dulcolax) 10 mg RECTAL DAILY PRN PRN Reason: Constipation Calcium Carbonate (Caltrate 600+D 1500 Mg-400 Units) 1 tab PO DAILY [facility] Last Admin: 12/11/18 08:25 Dose: 1 tab Cefazolin Sodium (Ancef) Confirm Administered Dose 2 gm .ROUTE .[facility]-MED ONE Stop: 12/10/18 11:00 Celecoxib (Celebrex) 200 mg PO DAILY [facility] Last Admin: 12/11/18 08:20 Dose: 200 mg Dexamethasone (Dexamethasone) Confirm Administered Dose 20 mg .ROUTE .[facility]-MED ONE Stop: 12/10/18 11:47 Dextrose/Water (Dextrose 50% In Water) 50 ml IVPUSH ASDIRECTED PRN PRN Reason: Hypoglycemia Diphenhydramine HCl (Benadryl) 25 - 50 mg PO Q6H PRN PRN Reason: Itching Docusate Sodium (Colace) 100 mg PO BID [facility] Last Admin: 12/11/18 08:24 Dose: 100 mg Epinephrine HCl (Adrenalin) 1 mg IVPUSH ASDIRECTED PRN PRN Reason: ACLS Guidelines Fentanyl (Sublimaze) Confirm Administered Dose 100 mcg .ROUTE .[facility]-MED ONE Stop: 12/10/18 09:38 Fentanyl (Sublimaze) 50 mcg IVPUSH Q5M PRN PRN Reason: Pain Ferrous Sulfate (Ferrous Sulfate) 325 mg PO DAILY [facility] Last Admin: 12/11/18 08:20 Dose: 325 mg Furosemide (Lasix) 20 mg PO DAILY [facility] Last Admin: 12/11/18 08:20 Dose: 20 mg Hydromorphone HCl (Dilaudid) 2 - 6 mg PO BID PRN PRN Reason: Pain Last Admin: 12/10/18 16:53 Dose: 2 mg Cefazolin Sodium/Dextrose 2 gm (/ Premix) 50 mls @ 100 mls/hr IV ONETIME [facility] Sodium Chloride (Normal Saline) Confirm Administered Dose 20 mls @ as directed .ROUTE .[facility] ONE Stop: 12/10/18 11:00 Cefazolin Sodium/Dextrose 2 gm (/ Premix) 50 mls @ 100 mls/hr IV Q8H [facility] Stop: 12/11/18 03:29 Last Admin: 12/11/18 03:34 Dose: 100 mls/hr Insulin Aspart (Novolog) 0 unit SUBCUT TIDAC [facility]; Protocol Last Admin: 12/11/18 08:09 Dose: Not Given Ketorolac Tromethamine (Toradol) 15 mg IVPUSH Q6H [facility] Stop: 12/11/18 05:00 Last Admin: 12/11/18 00:12 Dose: Not Given Lidocaine (Xylocaine-Mpf 2%) Confirm Administered Dose 5 ml .ROUTE .[facility] Stop: 12/10/18 11:00 Lisinopril (Prinivil) 20 mg PO DAILY [facility] Last Admin: 12/11/18 08:23 Dose: 20 mg Magnesium Oxide (Magnesium Oxide) 400 mg PO DAILY [facility] Last Admin: 12/11/18 08:24 Dose: 400 mg Metformin HCl (Glucophage Xr) 1,000 mg PO BID [facility] Midazolam HCl (Versed 1 Mg/Ml) Confirm Administered Dose 2 mg .ROUTE .[facility] Stop: 12/10/18 09:38 Midazolam HCl (Versed 1 Mg/Ml) Confirm Administered Dose 2 mg .ROUTE .[facility] ONE Stop: 12/10/18 10:59 Morphine Sulfate (Morphine Sulfate) 1 - 3 mg IV Q3H PRN PRN Reason: Pain Naloxone HCl (Narcan) 0.1 mg IVPUSH ASDIRECTED PRN PRN Reason: Respiratory Depression Omeprazole (Omeprazole) 20 mg PO ASDIRECTED PRN PRN Reason: Heartburn Omeprazole (Omeprazole) 20 mg PO DAILY PRN PRN Reason: Heartburn Ondansetron HCl (Zofran) Confirm Administered Dose 4 mg .ROUTE .[employer]-[facility] ONE Stop: 12/10/18 11:47 Ondansetron HCl (Zofran) 4 mg IV Q6HR PRN PRN Reason: NAUSEA/VOMITING Phenylephrine HCl (Phenylephrine In Ns 100 Mcg/Ml) Confirm Administered Dose 1 mg .ROUTE .[facility]-MED ONE Stop: 12/10/18 11:15 Phenylephrine HCl (Kamar-Synephrine) Confirm Administered Dose 10 mg .ROUTE .STK- MED ONE Stop: 12/10/18 11:48 Pioglitazone HCl (Actos) 30 mg PO DAILY GAYLA Propofol (Diprivan 20 Ml) Confirm Administered Dose 400 mg .ROUTE .STK-MED ONE Stop: 12/10/18 09:38 Propofol (Diprivan 20 Ml) Confirm Administered Dose 200 mg .ROUTE .STK-MED ONE Stop: 12/10/18 12:00 Tramadol HCl (Ultram) 50 mg PO BEDTIME PRN PRN Reason: Pain Tranexamic Acid (Cyklokapron) 2,000 mg IV ONETIME ONE Stop: 12/10/18 07:04 Last Admin: 12/10/18 11:10 Dose: 2,000 mg Tranexamic Acid (Cyklokapron) Confirm Administered Dose 2,000 mg .ROUTE .STK- MED ONE Stop: 12/10/18 11:19
== END 2018-12-11 11:00 | disposition home or self-care (01) | DRG 470 ==
LOC: MW.MS 08:41
PROVIDERS: ADMIT Orthopaedic Surgery; ATTEND Orthopaedic Surgery
PROC: 0SR904A Replacement of Right Hip Joint with Ceramic on Polyethylene Synthetic Substitute, Uncemented, Open Approach (ICD-10-PCS; principal; 2018-12-10)
DX: M16.11 Unilateral primary osteoarthritis, right hip (principal); Z68.42 Body mass index [BMI] 45.0-49.9, adult; K21.9 Gastro-esophageal reflux disease without esophagitis; I10 Essential (primary) hypertension; D64.9 Anemia, unspecified; J45.909 Unspecified asthma, uncomplicated; E66.01 Morbid (severe) obesity due to excess calories; E11.69 Type 2 diabetes mellitus with other specified complication; Z88.1 Allergy status to other antibiotic agents; Z88.8 Allergy status to other drugs, medicaments and biological substances; Z79.899 Other long term (current) drug therapy; Z87.442 Personal history of urinary calculi; Z79.84 Long term (current) use of oral hypoglycemic drugs
CPT/HCPCS: 36415; 76000; 76000-26; 80048; 82962; 85014; 85018; 85025; 97110-GP; 97161-GP; 97530-GP; A9270-GY; C1776; J0690; J1100; J1815-GY; J1885; J2001; J2250; J2370; J2405; J2704; J3010

== ENCOUNTER 2019-05-14 06:36 | Inpatient (IN) | payer MEDICARE ==
[2019-05-14] MEDS ORDERED: Lidocaine 2% 5 ML SDV ONE (07:20)
[2019-05-14] MEDS ORDERED: Propofol 200 MG/20 ML SDV ONE ×2 (07:20→09:10)
[2019-05-14] MEDS ORDERED: fentaNYL 100 MCG/2 ML SDV ONE (07:20)
[2019-05-14] MEDS ORDERED: Midazolam 1 MG/ML 2 ML SDV ONE (07:21)
--- NOTE | 2019-05-14 07:25 | PCM.PREANE ---
Preanesthetic Assessment - Anesthesia/Transfusion/Family Hx Anesthesia History: Prior Anesthesia Without Reaction Other Type of Anesthesia Reaction Comment: was told he was a "difficult Spinal" because of Arthritis in his spine Family History of Anesthesia Reaction: No Transfusion History: No Prior Transfusion(s) Intubation History: Unknown - Review of Systems General: No Symptoms Pulmonary: No Symptoms Cardiovascular: No Symptoms Gastrointestinal: No Symptoms Neurological: No Symptoms Other: Reports: None - Physical Assessment Vital Signs: Last Vital Signs Temp 36.2 C 05/14/19 06:57 Pulse 82 05/14/19 06:57 Resp 16 05/14/19 06:57 BP 142/77 H 05/14/19 06:57 Pulse Ox 97 05/14/19 06:57 Height: 5 ft 8 in Weight: 133.81 kg ASA Class: 2 Mental Status: Alert & Oriented x3 Airway Class: Mallampati = 3 Dentition: Reports: Normal Dentition Thyro-Mental Finger Breadths: 3 Mouth Opening Finger Breadths: 3 ROM/Head Extension: Limited/Partial Lungs: Clear to Auscultation, Normal Respiratory Effort Cardiovascular: Regular Rate, Regular Rhythm - Allergies Allergies/Adverse Reactions: Allergies Allergy/AdvReac Type Severity Reaction Status Date / Time erythromycin base Allergy Difficulty Verified 05/08/19 16:07 Breathing ibuprofen Allergy gastric Verified 05/08/19 16:07 bleeding promethazine Allergy Other Verified 05/08/19 16:07 - Blood Blood Available: No - Anesthesia Plan Pre-Op Medication Ordered: None - Acknowledgements Anesthesia Type Planned: Spinal Pt an Appropriate Candidate for the Planned Anesthesia: Yes Alternatives and Risks of Anesthesia Discussed w Pt/Guardian: Yes Pt/Guardian Understands and Agrees with Anesthesia Plan: Yes PreAnesthesia Questionnaire HEENT History: Reports: Other (See Below) Other HEENT History: wears glasses Cardiovascular History: Reports: Hypertension Other Cardiovascular History: edema to lower extremities, wears conpressions socks, takes Lasix PRN Respiratory History: Reports: Other (See Below) Other Respiratory History: hx of bronchitis but states is not chronic, has prescribed inhaler but states has not used for "along time" Gastrointestinal History: Reports: GERD, GI Bleed Genitourinary History: Reports: Renal Calculus Musculoskeletal History: Reports: Fracture, Osteoarthritis Other Musculoskeletal History: hx fx wrist, collarbone and leg Neurological History: Reports: None, Other (See Below) (restless leg syndrome) Psychiatric History: Reports: Other (See Below) Other Psychiatric History: hx of claustrophobia Endocrine/Metabolic History: Reports: Diabetes, Type II, Obesity/BMI 30+ Hematologic History: Reports: Anemia, Iron Deficiency Immunologic History: Reports: None Oncologic (Cancer) History: Reports: None Dermatologic History: Reports: Other (See Below) Other Dermatologic History: fungus to "sweaty areas" - Past Surgical History Head Surgeries/Procedures: Reports: None HEENT Surgical History: Reports: Cataract Surgery, Tonsillectomy Cardiovascular Surgical History: Reports: None Respiratory Surgical History: Reports: None GI Surgical History: Reports: Colonoscopy, EGD Male Surgical History: Reports: None Neurological Surgical History: Reports: None Musculoskeletal Surgical History: Reports: Hip Replacement (12/10/18) Oncologic Surgical History: Reports: None Dermatological Surgical History: Reports: None - SUBSTANCE USE Smoking Status *Q: Never Smoker Recreational Drug Use History: No - HOME MEDS Home Medications: Home Meds Lisinopril 20 mg PO DAILY 04/28/18 [History] Pioglitazone HCl 30 mg PO DAILY 04/28/18 [History] metFORMIN [Glucophage XR] 1,000 mg PO BID 04/28/18 [History] Acetaminophen [Tylenol Arthritis] 650 mg PO QID PRN 12/05/18 [History] Calcium Citrate/Vitamin D3 [Citracal + D Maximum Caplet] 1 tab PO DAILY [History] Cinnamon Bark [Cinnamon] 500 mg PO BID 12/05/18 [History] Ferrous Sulfate [Iron] 325 mg PO DAILY 12/05/18 [History] Furosemide 20 mg PO DAILY PRN 12/05/18 [History] Omeprazole 20 mg PO ASDIRECTED 12/05/18 [History] - CURRENT (IN HOUSE) MEDS Current Meds: Current Medications Cefazolin Sodium/Dextrose 1 gm (/ Premix) 50 mls @ 100 mls/hr IV Q8H GAYLA Cefazolin Sodium/Dextrose 1 gm (/ Premix) 50 mls @ 100 mls/hr IV ONETIME ONE Stop: 05/14/19 08:29 Tranexamic Acid (Cyklokapron) 2,000 mg IV ONETIME ONE Stop: 05/14/19 08:01
[2019-05-14] MEDS ORDERED: ceFAZolin 1 GM Vial ONE (07:42)
[2019-05-14] MEDS ORDERED: Sodium Chloride 0.9% 20 ML ONE (07:42)
[2019-05-14] MEDS ORDERED: ceFAZolin 1 GM in Premix Bag 1 BAG IV ONE (08:00)
[2019-05-14] MEDS ORDERED: ceFAZolin 1 GM in Premix Bag 1 BAG IV SCH (08:00)
[2019-05-14] MEDS ORDERED: Phenylephrine/Normal Saline 100 MCG/ML 10 ML Syringe ONE (08:57)
--- NOTE | 2019-05-14 09:36 | PCM.OPNOTE ---
- General Post-Op/Procedure Note Date of Surgery/Procedure: 05/14/19 Operative Procedure(s): left anterior total hip arthroplasty Findings: left hip OA Pre Op Diagnosis: left hip osteoarthritis Post-Op Diagnosis: same Anesthesia Technique: Moderate Sedation, Spinal Primary Surgeon: Smith Gunn Mai Horizontal Drill Operator: Carlotta Avila Horizontal Drill Operator: Leida Mei Pathology: femoral EBL in mLs: 300 Complications: none Condition: Good
[2019-05-14] MEDS ORDERED: Bisacodyl 10 MG Supp RECTAL PRN (09:43)
[2019-05-14] MEDS ORDERED: diphenhydrAMINE 25 MG Cap PO PRN (09:43)
[2019-05-14] MEDS ORDERED: Ondansetron 4 MG/2 ML SDV IVPUSH PRN (09:43)
[2019-05-14] MEDS ORDERED: Docusate Sodium 100 MG Cap PO PRN (09:43)
[2019-05-14] MEDS ORDERED: Sodium Chloride 0.9% 10 ML Syringe FLUSH PRN (09:43)
[2019-05-14] MEDS ORDERED: Aluminum Hydroxide/Magnesium Hydroxide/Simethicone Susp 30 ML Cup PO PRN (09:43)
[2019-05-14] MEDS ORDERED: Sodium Chloride 0.9% 2.5 ML Syringe FLUSH PRN (09:43)
--- NOTE | 2019-05-14 10:48 | PCM.POSTAN ---
POST ANESTHESIA ASSESSMENT - MENTAL STATUS Mental Status: Alert, Oriented - VITAL SIGNS Vital Signs: Last Vital Signs Temp 97.7 C H 05/14/19 09:47 Pulse 70 05/14/19 10:23 Resp 18 05/14/19 10:23 BP 119/49 L 05/14/19 10:23 Pulse Ox 96 05/14/19 10:23 - RESPIRATORY Respiratory Status: Respiratory Rate WNL, Airway Patent, O2 Saturation Stable - CARDIOVASCULAR CV Status: Pulse Rate WNL, Blood Pressure Stable - GASTROINTESTINAL GI Status: No Symptoms - PAIN Pain Score: 0 - POST OP HYDRATION Hydration Status: Adequate & Stable - OBSERVATIONS Free Text/Narrative:: no anesthesia problems
[2019-05-14] MEDS ORDERED: Furosemide 20 MG Tab PO PRN (11:00)
--- NOTE | 2019-05-14 11:01 | PCM.CONS ---
<Ayanna Menjivar M - Last Filed: 05/14/19 11:08> H&P History of Present Illness - General Date of Service: 05/14/19 Admit Problem/Dx: Admission Diagnosis/Problem Admission Diagnosis/Problem Hip replacement planned Source of Information: Patient History Limitations: Reports: No Limitations - History of Present Illness Initial Comments - Free Text/Narative: This 73 year old male admitted for L anterior hip arthroplasty with Dr Stanton, Hospitalist service consulted for medical management of DM and HTN. Iron recently arrived to the Medical floor from PACU. He is currently experiencing a lot of pain to his hip and is recieving pain medications. Denies chest pain or SOB. Reports he has done really after R hip replacement in December, no significant changes in medical history. is at bedside. Most recent A1c is 5.8, reports he is complaint with medications at home. Denies taking BS at home. Reports he has not taken Lasix recently for lower extremity edema. PCP, Dr Keita - Related Data Allergies/Adverse Reactions: Allergies Allergy/AdvReac Type Severity Reaction Status Date / Time erythromycin base Allergy Difficulty Verified 05/14/19 11:41 Breathing ibuprofen Allergy gastric Verified 05/14/19 11:41 bleeding promethazine Allergy Other Verified 05/14/19 11:41 Home Medications: Home Meds Lisinopril 20 mg PO DAILY 04/28/18 [History] Pioglitazone HCl 30 mg PO DAILY 04/28/18 [History] metFORMIN [Glucophage XR] 1,000 mg PO BID 04/28/18 [History] Acetaminophen [Tylenol Arthritis] 650 mg PO QID PRN 12/05/18 [History] Calcium Citrate/Vitamin D3 [Citracal + D Maximum Caplet] 1 tab PO DAILY [History] Cinnamon Bark [Cinnamon] 500 mg PO BID 12/05/18 [History] Ferrous Sulfate [Iron] 65 mg PO DAILY 12/05/18 [History] Furosemide 20 mg PO DAILY PRN 12/05/18 [History] Omeprazole 20 mg PO ASDIRECTED 12/05/18 [History] Past Medical History HEENT History: Reports: Other (See Below) Other HEENT History: wears glasses Cardiovascular History: Reports: Hypertension Other Cardiovascular History: edema to lower extremities, wears conpressions socks, takes Lasix PRN Respiratory History: Reports: Other (See Below) Other Respiratory History: hx of bronchitis but states is not chronic, has prescribed inhaler but states has not used for "along time" Gastrointestinal History: Reports: GERD, GI Bleed Genitourinary History: Reports: Renal Calculus Musculoskeletal History: Reports: Fracture, Osteoarthritis Other Musculoskeletal History: hx fx wrist, collarbone and leg Neurological History: Reports: None, Other (See Below) (restless leg syndrome) Psychiatric History: Reports: Other (See Below) Other Psychiatric History: hx of claustrophobia Endocrine/Metabolic History: Reports: Diabetes, Type II, Obesity/BMI 30+ Hematologic History: Reports: Anemia, Iron Deficiency Immunologic History: Reports: None Oncologic (Cancer) History: Reports: None Dermatologic History: Reports: Other (See Below) Other Dermatologic History: fungus to "sweaty areas" - Past Surgical History Head Surgeries/Procedures: Reports: None HEENT Surgical History: Reports: Cataract Surgery, Tonsillectomy Cardiovascular Surgical History: Reports: None Respiratory Surgical History: Reports: None GI Surgical History: Reports: Colonoscopy, EGD Male Surgical History: Reports: None Neurological Surgical History: Reports: None Musculoskeletal Surgical History: Reports: Hip Replacement (12/10/18) Oncologic Surgical History: Reports: None Dermatological Surgical History: Reports: None Social & Family History - Family History Family Medical History: Noncontributory - Tobacco Use Smoking Status *Q: Never Smoker - Caffeine Use Caffeine Use: Reports: Soda - Recreational Drug Use Recreational Drug Use: No Drug Use in Last 12 Months: No H&P Review of Systems - Review of Systems: Review Of Systems: See Below General: Reports: No Symptoms. Denies: Fever, Chills, Malaise, Weakness HEENT: Reports: No Symptoms. Denies: Headaches, Sinus Congestion, Vertigo Pulmonary: Reports: No Symptoms. Denies: Shortness of Breath Cardiovascular: Reports: No Symptoms. Denies: Chest Pain Gastrointestinal: Reports: No Symptoms. Denies: Abdominal Pain, Nausea, Vomiting Genitourinary: Reports: No Symptoms. Denies: Dysuria, Burning Musculoskeletal: Reports: Joint Pain (L hip) Skin: Reports: No Symptoms Psychiatric: Reports: No Symptoms Neurological: Reports: No Symptoms Hematologic/Lymphatic: Reports: No Symptoms Immunologic: Reports: No Symptoms Exam - Exam Exam: See Below - Vital Signs Vital Signs: Last Vital Signs Temp 207.9 F H 05/14/19 09:47 Pulse 70 05/14/19 10:23 Resp 18 05/14/19 10:23 BP 119/49 L 05/14/19 10:23 Pulse Ox 96 05/14/19 10:23 Weight: 133.81 kg - Exam General: Alert, Oriented, Cooperative, Mild Distress (L hip pain, limits speaking due to pain) HEENT: Conjunctiva Clear, Mucosa Moist & [address], Pupils Equal, Pupils Reactive Lungs: Clear to Auscultation, Normal Respiratory Effort Cardiovascular: Regular Rate, Regular Rhythm GI/Abdominal Exam: Normal Bowel Sounds, Soft, Non-Tender, Other (obese abdomen) Extremities: Normal Inspection, Normal Range of Motion, Pedal Edema (+1 non pitting edema bilaterally.) Neuro Extensive - Mental Status: Alert, Oriented x3 Neuro Extensive - Motor, Sensory, Reflexes: CN II-XII Intact Psychiatric: Alert, Normal Affect, Normal Mood - Patient Data Lab Results Last 24 hrs: Laboratory Results - last 24 hr 05/14/19 Range/Units 07:06 POC Glucose 106 (60-110) mg/dL Consult PN Assessment/Plan Procedures: Procedures COMPLETE CBC AUTOMATED (11/19/18) COMPLETE CBC W/AUTO DIFF WBC (04/22/19) DRAIN/INJ JOINT/BURSA W/O US (09/28/18) ELECTROCARDIOGRAM TRACING (11/19/18) EMERGENCY DEPT VISIT (04/28/18) FLUOROSCOPY <1 HR PHYS/QHP (12/10/18) GLUCOSE BLOOD TEST (12/10/18) GLYCOSYLATED HEMOGLOBIN TEST (04/22/19) HEMATOCRIT (12/10/18) HEMOGLOBIN (12/10/18) METABOLIC PANEL TOTAL CA (04/22/19) NEEDLE LOCALIZATION BY XRAY (09/28/18) OFFICE/OUTPATIENT VISIT EST (11/19/18) OFFICE/OUTPATIENT VISIT NEW (07/05/17) PROTHROMBIN TIME (04/22/19) PT EVAL LOW COMPLEX 20 MIN (12/10/18) ROUTINE VENIPUNCTURE (04/22/19) THERAPEUTIC ACTIVITIES (12/10/18) THERAPEUTIC EXERCISES (12/10/18) URINALYSIS AUTO W/O SCOPE (04/22/19) URINALYSIS AUTO W/SCOPE (11/19/18) X-RAY EXAM CHEST 2 VIEWS (04/22/19) X-RAY EXAM HIP UNI 2-3 VIEWS (07/05/17) X-RAY EXAM HIPS BI 2 VIEWS (02/14/19) X-RAY EXAM OF FOOT (07/05/17) (1) S/P hip replacement SNOMED Code(s): 150862097, 197064751, 531901044, 195388182 Code(s): Z96.649 - PRESENCE OF UNSPECIFIED ARTIFICIAL HIP JOINT Current Visit: No Qualifiers: Laterality: left Qualified Code(s): Z96.642 - Presence of left artificial hip joint (2) Diabetes mellitus type 2 in obese SNOMED Code(s): 55495122 Code(s): E11.69 - TYPE 2 DIABETES MELLITUS WITH OTHER SPECIFIED COMPLICATION ; E66.9 - OBESITY, UNSPECIFIED Current Visit: No (3) Hypertension SNOMED Code(s): 96461646 Code(s): I10 - ESSENTIAL (PRIMARY) HYPERTENSION Current Visit: No Qualifiers: Hypertension type: essential hypertension Qualified Code(s): I10 - Essential (primary) hypertension (4) Morbid obesity with BMI of 40.0-44.9, adult SNOMED Code(s): 317853903, 47197410913084 Code(s): E66.01 - MORBID (SEVERE) OBESITY DUE TO EXCESS CALORIES; Z68.41 - BODY MASS INDEX (BMI) 40.0-44.9, ADULT Current Visit: No Problem List Initiated/Reviewed/Updated: Yes My Orders Last 24 Hours: My Active Orders 05/14/19 10:59 BMP [BASIC METABOLIC PANEL,BMP] [CHEM] Routine CBC WITH AUTO DIFF [HEME] Routine MG [MAGNESIUM] [CHEM] Routine 05/14/19 11:00 Blood Glucose Check, Bedside [RC] TIDAC Furosemide [Lasix] 20 mg PO DAILY PRN 05/14/19 11:30 Insulin Aspart [NovoLOG] See Protocol SUBCUT TIDAC 05/15/19 09:00 Lisinopril 20 mg PO DAILY Plan: This 73 year old male admitted with L anterior hip arthroplasty, Hospitalist service consulted. 1. L anterior hip arthroplasty: Orders per Orthopedics 2. DM Type 2: Hold Oral agents, Novolog SSI monitor BS TIDAC 3. HTN: Stable, continue Lisinopril. Monitor BMP. 4. Peripheral edema: Stable, Continue Lasix PRN. Encourage ambulation and Compression stockings. VTE prophylaxis: Recommended when Orthopedics deems appropriate <Fer Paz - Last Filed: 05/14/19 13:02> H&P History of Present Illness - General Admit Problem/Dx: Admission Diagnosis/Problem Admission Diagnosis/Problem Hip replacement planned I have seen and examined the patient independently of Ayanna Menjivar CNP. I have reviewed and agree with the plan of care as outlined for this patient by her. I have discussed the case with her. Please see orders. Left Hip Pain Score (Numeric/FACES): 9 Exam - Vital Signs Vital Signs: Last Vital Signs Temp 97.7 C H 05/14/19 09:47 Pulse 70 05/14/19 10:23 Resp 18 05/14/19 10:23 BP 119/49 L 05/14/19 10:23 Pulse Ox 96 05/14/19 10:23 - Patient Data Lab Results Last 24 hrs: Laboratory Results - last 24 hr 05/14/19 05/14/19 05/14/19 Range/Units 07:06 11:16 11:16 WBC 7.16 (4.0-11.0) K/uL RBC 4.28 L (4.50-5.90) M/uL Hgb 13.5 (13.0-17.0) g/dL Hct 42.2 (38.0-50.0) % MCV 98.6 H (80.0-98.0) fL MCH 31.5 (27.0-32.0) pg MCHC 32.0 (31.0-37.0) g/dL RDW Std Deviation 51.0 (28.0-62.0) fl RDW Coeff of Shi 14 (11.0-15.0) % Plt Count 212 (150-400) K/uL MPV 10.00 (7.40-12.00) fL Neut % (Auto) 73.3 (48.0-80.0) % Lymph % (Auto) 17.7 (16.0-40.0) % [place] % (Auto) 8.0 (0.0-15.0) % Eos % (Auto) 0.7 (0.0-7.0) % Baso % (Auto) 0.3 (0.0-1.5) % Neut # (Auto) 5.3 (1.4-5.7) K/uL Lymph # (Auto) 1.3 (0.6-2.4) K/uL [place] # (Auto) 0.6 (0.0-0.8) K/uL Eos # (Auto) 0.1 (0.0-0.7) K/uL Baso # (Auto) 0.0 (0.0-0.1) K/uL Nucleated RBC % 0.0 /100WBC Nucleated RBCs # 0 K/uL Sodium 144 (136-148) mmol/L Potassium 4.3 (3.5-5.1) mmol/L Chloride 106 (98-107) mmol/L Carbon Dioxide 29.2 (21.0-32.0) mmol/L BUN 12 (7.0-18.0) mg/dL Creatinine 0.8 (0.8-1.3) mg/dL Est Cr Clr Drug Dosing 81.94 mL/min Estimated GFR (MDRD) > 60.0 ml/min Glucose 111 H (74-106) mg/dL POC Glucose 106 (60-110) mg/dL Calcium 8.9 (8.5-10.1) mg/dL Magnesium 1.8 (1.8-2.4) mg/dL 05/14/19 Range/Units 12:44 WBC (4.0-11.0) K/uL RBC (4.50-5.90) M/uL Hgb (13.0-17.0) g/dL Hct (38.0-50.0) % MCV (80.0-98.0) fL MCH (27.0-32.0) pg MCHC (31.0-37.0) g/dL RDW Std Deviation (28.0-62.0) fl RDW Coeff of Shi (11.0-15.0) % Plt Count (150-400) K/uL MPV (7.40-12.00) fL Neut % (Auto) (48.0-80.0) % Lymph % (Auto) (16.0-40.0) % [place] % (Auto) (0.0-15.0) % Eos % (Auto) (0.0-7.0) % Baso % (Auto) (0.0-1.5) % Neut # (Auto) (1.4-5.7) K/uL Lymph # (Auto) (0.6-2.4) K/uL [place] # (Auto) (0.0-0.8) K/uL Eos # (Auto) (0.0-0.7) K/uL Baso # (Auto) (0.0-0.1) K/uL Nucleated RBC % /100WBC Nucleated RBCs # K/uL Sodium (136-148) mmol/L Potassium (3.5-5.1) mmol/L Chloride (98-107) mmol/L Carbon Dioxide (21.0-32.0) mmol/L BUN (7.0-18.0) mg/dL Creatinine (0.8-1.3) mg/dL Est Cr Clr Drug Dosing mL/min Estimated GFR (MDRD) ml/min Glucose (74-106) mg/dL POC Glucose 111 H (60-110) mg/dL Calcium (8.5-10.1) mg/dL Magnesium (1.8-2.4) mg/dL Result Diagrams: 05/14/19 11:16 05/14/19 11:16 Consult PN Assessment/Plan Procedures: Procedures COMPLETE CBC AUTOMATED (11/19/18) COMPLETE CBC W/AUTO DIFF WBC (04/22/19) DRAIN/INJ JOINT/BURSA W/O US (09/28/18) ELECTROCARDIOGRAM TRACING (11/19/18) EMERGENCY DEPT VISIT (04/28/18) FLUOROSCOPY <1 HR PHYS/QHP (12/10/18) GLUCOSE BLOOD TEST (12/10/18) GLYCOSYLATED HEMOGLOBIN TEST (04/22/19) HEMATOCRIT (12/10/18) HEMOGLOBIN (12/10/18) METABOLIC PANEL TOTAL CA (04/22/19) NEEDLE LOCALIZATION BY XRAY (09/28/18) OFFICE/OUTPATIENT VISIT EST (11/19/18) OFFICE/OUTPATIENT VISIT NEW (07/05/17) PROTHROMBIN TIME (04/22/19) PT EVAL LOW COMPLEX 20 MIN (12/10/18) ROUTINE VENIPUNCTURE (04/22/19) THERAPEUTIC ACTIVITIES (12/10/18) THERAPEUTIC EXERCISES (12/10/18) URINALYSIS AUTO W/O SCOPE (04/22/19) URINALYSIS AUTO W/SCOPE (11/19/18) X-RAY EXAM CHEST 2 VIEWS (04/22/19) X-RAY EXAM HIP UNI 2-3 VIEWS (07/05/17) X-RAY EXAM HIPS BI 2 VIEWS (02/14/19) X-RAY EXAM OF FOOT (07/05/17)
[2019-05-14] MEDS: Acetaminophen/HYDROcodone 325-7.5 MG Tab PO PRN ×4 (11:06→23:25)
[2019-05-14 11:53] LABS: BLOOD UREA NITROGEN,BUN 12 mg/dL (7.0-18.0); CARBON DIOXIDE,CO2 29.2 mmol/L (21.0-32.0); CHLORIDE,CL 106 mmol/L (98-107); GLUCOSE RANDOM 111 mg/dL (74-106); POTASSIUM,K 4.3 mmol/L (3.5-5.1); SODIUM,NA 144 mmol/L (136-148)
[2019-05-14] MEDS: Insulin Aspart 100 Units/ML 3 ML Pen SUBCUT SCH ×2 (12:45→17:19)
[2019-05-14] MEDS: Morphine 2 MG/ML Syringe IVPUSH PRN ×4 (13:22→23:33)
--- NOTE | 2019-05-14 13:33 | OR ---
SURGEON: Smith Stanton MD DATE OF PROCEDURE: 05/14/2019 PRIMARY SURGEON: Smith Stanton MD. ASSISTANTS: Carlotta Avila PA-C, and BROOKLYN Syed. PREOPERATIVE DIAGNOSIS: Left hip osteoarthritis. POSTOPERATIVE DIAGNOSIS: Left hip osteoarthritis. OPERATION PERFORMED: Left anterior total hip arthroplasty. ANESTHESIA: Spinal and sedation. COMPLICATIONS: None. ESTIMATED BLOOD LOSS: 300 mL. SPECIMENS: Femoral head. IMPLANTS: Charles Continuum Trabecular Metal shell with cluster holes, 56 mm outer diameter; Vivacit-E neutral liner, 36 mm inner diameter; M/L taper press-fit stem, size 16.25, extended offset, BIOLOX delta ceramic femoral head, 36 mm diameter, 0 neck length. INDICATIONS: The patient is 73-year-old male with severe arthritis. He has previously undergone right hip replacement. He wished to undergo a left. He understands risks, benefits, alternatives, complications of procedure including, but not limited to, infection, neurovascular injury, continued pain, nonresolution of symptoms, DVT, PE, stroke, TX, , leg-length discrepancy, fracture, dislocation. He wished to proceed. He is aware that assistants were necessary for retraction, closure, positioning, and manipulating the leg. DESCRIPTION OF PROCEDURE: The patient was seen in preoperative area. The operative site was marked. The patient was transferred to the operating room. Spinal anesthetic was given. He was placed supine on the Maquet table and sedation was given. Legs were placed in leg bars with narrow perineal post. Left hip was prepped and draped in usual fashion using alcohol followed by ChloraPrep with Ioban covering. A formal time- out was taken identifying the correct patient, procedure, and extremity. He received preoperative antibiotics with Ancef and 2 g of TXA. An 8 cm incision starting lateral at the ASIS going obliquely to the femur was made. Dissection was carried down through subcutaneous tissues. Hemostasis was obtained. The fascia overlying the TFL lateral to lateral femoral cutaneous nerve was opened, and the interval between the TFL and sartorius and deep between the abductors and rectus was opened. The vastus lateralis fascia was opened and the anterior vessels were coagulated. The indirect head of the rectus was released. Hemostasis was obtained. A deep Anton retractor was placed. The capsule was held and tagged with two sutures and deep retractors were placed. The neck was cut from saddle region 1.5 cm above the lesser trochanter. The head was removed. There was moderate to severe arthritis. The inferior capsule was released preserving the iliopsoas tendon. The labral remnants and pulvinar were removed. The head measured approximately 52 mm, I sequentially reamed from 51 up to 55 mm, going slightly superior medial to get good fit and fill, and then a Continuum Trabecular Metal shell with 56 mm diameter cluster holes was placed in 10 degrees of anteversion and 40 degrees of abduction, this had excellent press fit. The neutral liner was impacted after cleaning the hip out. Femoral lift was placed and the leg was externally rotated, abducted, and extended. The superior capsule, obturator internus, and piriformis were released. The central canal finder utilized. The hip was sequentially broached from a starter rasp up to size 16.25. This was slightly larger than his other hip. It had excellent fit. Therefore, a final 16.25 extended offset M/L taper stem was impacted. Following the [place] version, it was trial reduced to 0 neck length. Printed overlay technique with the opposite hip showed equal leg lengths and offset. Therefore, the hip was dislocated. Prior to that it was stable on range of motion with no Shuck. The final ceramic femoral head, 36 mm diameter, 0 neck length was impacted. The hip was relocated. Two tag sutures were tied together. The wound was thoroughly irrigated. The fascia was closed with #1 Vicryl, subcutaneous tissues with 2-0 Stratafix, skin with running 4-0 Monocryl. Dermabond tape and Aquacel dressing were placed. The patient was transferred to the recovery room in stable condition. Sponge and needle counts were correct at the end of the case. There were no complications. He will take aspirin for DVT prophylaxis. ANALILIA BRIGGS /[id number]
[2019-05-14] MEDS: ceFAZolin 2 GM in Premix Bag 1 BAG IV SCH ×2 (15:08→23:26)
[2019-05-14] MEDS ORDERED: Lactated Ringers 1,000 ML IV SCH (16:30)
[2019-05-15] MEDS: Morphine 2 MG/ML Syringe IVPUSH PRN (02:47)
[2019-05-15] MEDS: Acetaminophen/HYDROcodone 325-7.5 MG Tab PO PRN ×2 (04:32→08:08)
--- NOTE | 2019-05-15 06:51 | PCM48HPAN ---
Post Anesthesia Note - EVALUATION WITHIN 48HRS OF ANESTHETIC Vital Signs in Normal Range: Yes Patient Participated in Evaluation: Yes Respiratory Function Stable: Yes Airway Patent: Yes Cardiovascular Function Stable: Yes Hydration Status Stable: Yes Pain Control Satisfactory: Yes Nausea and Vomiting Control Satisfactory: Yes Mental Status Recovered: Yes Vital Signs: Last Vital Signs Temp 36.8 C 05/15/19 04:00 Pulse 81 05/15/19 04:00 Resp 17 05/15/19 04:00 BP 160/67 H 05/15/19 04:00 Pulse Ox 93 L 05/15/19 04:00 - COMMENTS/OBSERVATIONS Free Text/Narrative:: no anesthesia problems
--- NOTE | 2019-05-15 07:01 | PCM.SN ---
- Free Text/Narrative Note: Subjective: pain and controlled with meds. Patient has ambulated. no cp/sob. no other issues. doing well and wishes to go home O: afebrile vital signs stable left hip - minimal pain to ROM, leg lengths equal. dressing is clean/dry/ intact with no drainage or surrounding erythema. minimal swelling in thigh and none distally. A/P: POD #1 left BECKI - full weight bearing with walker. - ecotrin for DVT prophylaxis - d/c today, f/u 2 weeks.
[2019-05-15 07:04] LABS: BLOOD UREA NITROGEN,BUN 9 mg/dL (7.0-18.0); CHLORIDE,CL 104 mmol/L (98-107); GLUCOSE RANDOM 123 mg/dL (74-106); POTASSIUM,K 3.9 mmol/L (3.5-5.1); SODIUM,NA 141 mmol/L (136-148)
[2019-05-15] MEDS: Insulin Aspart 100 Units/ML 3 ML Pen SUBCUT SCH (07:49)
[2019-05-15] MEDS: Aspirin 325 MG Tab PO SCH ×2 (08:02→08:21)
[2019-05-15] MEDS ORDERED: Polyethylene Glycol 3350 Powder 17 GM Packet PO SCH (09:00)
[2019-05-15] MEDS ORDERED: Lisinopril 10 MG Tab PO SCH (09:00)
[2019-05-15] MEDS ORDERED: Famotidine 20 MG Tab PO SCH (09:00)
--- NOTE | 2019-05-15 10:12 | PCM.CONSN ---
<Ayanna Menjivar M - Last Filed: 05/15/19 10:07> - General Info Date of Service: 05/15/19 Admission Dx/Problem (Free Text): Admission Diagnosis/Problem Admission Diagnosis/Problem Hip replacement planned Subjective Update: Sitting up in the chair and doing well. Pain is tolerable. No chest pain or SOB. No other concerns. Eager to go home today. Did mention wanting Xarelto vs ASA due to stomach upset. Functional Status: Reports: Pain Controlled, Tolerating Diet, Ambulating, Urinating - Review of Systems General: Reports: No Symptoms. Denies: Malaise HEENT: Reports: No Symptoms. Denies: Headaches, Sore Throat, Visual Changes Pulmonary: Reports: No Symptoms. Denies: Shortness of Breath Cardiovascular: Reports: No Symptoms. Denies: Chest Pain Gastrointestinal: Reports: No Symptoms. Denies: Abdominal Pain, Nausea, Vomiting Genitourinary: Reports: No Symptoms. Denies: Dysuria, Frequency, Burning Musculoskeletal: Reports: Joint Pain (Hip pain, but is very tolerable.) Skin: Reports: No Symptoms Neurological: Reports: No Symptoms Psychiatric: Reports: No Symptoms - Patient Data Vitals - Most Recent: Last Vital Signs Temp 97.9 F 05/15/19 07:15 Pulse 88 05/15/19 07:15 Resp 16 05/15/19 07:15 BP 147/67 H 05/15/19 08:02 Pulse Ox 94 L 05/15/19 07:15 Weight - Most Recent: 133.81 kg I&O - Last 24 Hours: Intake & Output 05/14/19 05/15/19 05/15/19 22:59 06:59 14:59 Intake Total 1570 1520 Output Total 400 1120 Balance 1170 400 Lab Results Last 24 Hours: Laboratory Results - last 24 hr 05/14/19 05/14/19 05/14/19 Range/Units 07:06 11:16 11:16 WBC 7.16 (4.0-11.0) K/uL RBC 4.28 L (4.50-5.90) M/uL Hgb 13.5 (13.0-17.0) g/dL Hct 42.2 (38.0-50.0) % MCV 98.6 H (80.0-98.0) fL MCH 31.5 (27.0-32.0) pg MCHC 32.0 (31.0-37.0) g/dL RDW Std Deviation 51.0 (28.0-62.0) fl RDW Coeff of Shi 14 (11.0-15.0) % Plt Count 212 (150-400) K/uL MPV 10.00 (7.40-12.00) fL Neut % (Auto) 73.3 (48.0-80.0) % Lymph % (Auto) 17.7 (16.0-40.0) % [place] % (Auto) 8.0 (0.0-15.0) % Eos % (Auto) 0.7 (0.0-7.0) % Baso % (Auto) 0.3 (0.0-1.5) % Neut # (Auto) 5.3 (1.4-5.7) K/uL Lymph # (Auto) 1.3 (0.6-2.4) K/uL [place] # (Auto) 0.6 (0.0-0.8) K/uL Eos # (Auto) 0.1 (0.0-0.7) K/uL Baso # (Auto) 0.0 (0.0-0.1) K/uL Nucleated RBC % 0.0 /100WBC Nucleated RBCs # 0 K/uL Sodium 144 (136-148) mmol/L Potassium 4.3 (3.5-5.1) mmol/L Chloride 106 (98-107) mmol/L Carbon Dioxide 29.2 (21.0-32.0) mmol/L BUN 12 (7.0-18.0) mg/dL Creatinine 0.8 (0.8-1.3) mg/dL Est Cr Clr Drug Dosing 81.94 mL/min Estimated GFR (MDRD) > 60.0 ml/min Glucose 111 H (74-106) mg/dL POC Glucose 106 (60-110) mg/dL Calcium 8.9 (8.5-10.1) mg/dL Magnesium 1.8 (1.8-2.4) mg/dL 05/14/19 05/14/19 05/15/19 Range/Units 12:44 17:11 06:02 WBC (4.0-11.0) K/uL RBC (4.50-5.90) M/uL Hgb (13.0-17.0) g/dL Hct (38.0-50.0) % MCV (80.0-98.0) fL MCH (27.0-32.0) pg MCHC (31.0-37.0) g/dL RDW Std Deviation (28.0-62.0) fl RDW Coeff of Shi (11.0-15.0) % Plt Count (150-400) K/uL MPV (7.40-12.00) fL Neut % (Auto) (48.0-80.0) % Lymph % (Auto) (16.0-40.0) % [place] % (Auto) (0.0-15.0) % Eos % (Auto) (0.0-7.0) % Baso % (Auto) (0.0-1.5) % Neut # (Auto) (1.4-5.7) K/uL Lymph # (Auto) (0.6-2.4) K/uL [place] # (Auto) (0.0-0.8) K/uL Eos # (Auto) (0.0-0.7) K/uL Baso # (Auto) (0.0-0.1) K/uL Nucleated RBC % /100WBC Nucleated RBCs # K/uL Sodium (136-148) mmol/L Potassium (3.5-5.1) mmol/L Chloride (98-107) mmol/L Carbon Dioxide (21.0-32.0) mmol/L BUN (7.0-18.0) mg/dL Creatinine (0.8-1.3) mg/dL Est Cr Clr Drug Dosing mL/min Estimated GFR (MDRD) ml/min Glucose (74-106) mg/dL POC Glucose 111 H 133 H 113 H (60-110) mg/dL Calcium (8.5-10.1) mg/dL Magnesium (1.8-2.4) mg/dL 05/15/19 05/15/19 Range/Units 06:24 06:24 WBC (4.0-11.0) K/uL RBC (4.50-5.90) M/uL Hgb 13.3 (13.0-17.0) g/dL Hct 41.9 (38.0-50.0) % MCV (80.0-98.0) fL MCH (27.0-32.0) pg MCHC (31.0-37.0) g/dL RDW Std Deviation (28.0-62.0) fl RDW Coeff of Shi (11.0-15.0) % Plt Count (150-400) K/uL MPV (7.40-12.00) fL Neut % (Auto) (48.0-80.0) % Lymph % (Auto) (16.0-40.0) % [place] % (Auto) (0.0-15.0) % Eos % (Auto) (0.0-7.0) % Baso % (Auto) (0.0-1.5) % Neut # (Auto) (1.4-5.7) K/uL Lymph # (Auto) (0.6-2.4) K/uL [place] # (Auto) (0.0-0.8) K/uL Eos # (Auto) (0.0-0.7) K/uL Baso # (Auto) (0.0-0.1) K/uL Nucleated RBC % /100WBC Nucleated RBCs # K/uL Sodium 141 (136-148) mmol/L Potassium 3.9 (3.5-5.1) mmol/L Chloride 104 (98-107) mmol/L Carbon Dioxide 30.0 (21.0-32.0) mmol/L BUN 9 (7.0-18.0) mg/dL Creatinine 0.8 (0.8-1.3) mg/dL Est Cr Clr Drug Dosing 81.94 mL/min Estimated GFR (MDRD) > 60.0 ml/min Glucose 123 H (74-106) mg/dL POC Glucose (60-110) mg/dL Calcium 9.1 (8.5-10.1) mg/dL Magnesium (1.8-2.4) mg/dL Med Orders - Current: Current Medications Hydrocodone Bitart/Acetaminophen (Alex 325-7.5 Mg) 1 - 2 tab PO Q4H PRN PRN Reason: Pain Last Admin: 05/15/19 08:08 Dose: 2 tab Al Hydroxide/Mg Hydroxide (Mag-Al Plus) 30 ml PO Q4H PRN PRN Reason: Indigestion Bisacodyl (Dulcolax) 10 mg RECTAL DAILY PRN PRN Reason: Constipation Diphenhydramine HCl (Benadryl) 25 - 50 mg PO Q6H PRN PRN Reason: Itching Docusate Sodium (Colace) 100 mg PO BID PRN PRN Reason: Constipation Famotidine (Pepcid) 40 mg PO DAILY [facility] Last Admin: 05/15/19 08:02 Dose: 40 mg Furosemide (Lasix) 20 mg PO DAILY PRN PRN Reason: Edema Lactated Ringer's (Ringers, Lactated) 1,000 mls @ 100 mls/hr IV ASDIRECTED [facility] Last Admin: 05/14/19 16:30 Dose: 100 mls/hr Insulin Aspart (Novolog) 0 unit SUBCUT TIDAC [facility]; Protocol Last Admin: 05/15/19 07:49 Dose: Not Given Lisinopril (Prinivil) 20 mg PO DAILY [facility] Last Admin: 05/15/19 08:02 Dose: 20 mg Morphine Sulfate (Morphine) 1 - 3 mg IVPUSH Q3H PRN PRN Reason: Pain Last Admin: 05/15/19 02:47 Dose: 2 mg Ondansetron HCl (Zofran) 4 mg IVPUSH Q6H PRN PRN Reason: Nausea/Vomiting Polyethylene Glycol (Miralax) 17 gm PO DAILY [facility] Last Admin: 05/15/19 08:11 Dose: 17 gm Rivaroxaban (Xarelto) 10 mg PO DAILY [facility] Sodium Chloride (Saline Flush) 10 ml FLUSH ASDIRECTED PRN PRN Reason: Keep Vein Open Sodium Chloride (Saline Flush) 2.5 ml FLUSH ASDIRECTED PRN PRN Reason: Keep Vein Open Discontinued Medications Aspirin (Aspirin) 325 mg PO BID [facility] Last Admin: 05/15/19 08:21 Dose: Not Given Cefazolin Sodium (Ancef) Confirm Administered Dose 2 gm .ROUTE .STK-MED ONE Stop: 05/14/19 07:43 Fentanyl (Sublimaze) Confirm Administered Dose 100 mcg .ROUTE .STK-MED ONE Stop: 05/14/19 07:21 Cefazolin Sodium/Dextrose 1 gm (/ Premix) 50 mls @ 100 mls/hr IV ONETIME ONE Stop: 05/14/19 08:29 Last Admin: 05/14/19 11:21 Dose: Not Given Sodium Chloride (Normal Saline) Confirm Administered Dose 20 mls @ as directed .ROUTE .STK-MED ONE Stop: 05/14/19 07:43 Cefazolin Sodium/Dextrose 2 gm (/ Premix) 50 mls @ 100 mls/hr IV Q8H [facility] Stop: 05/15/19 00:29 Last Admin: 05/14/19 23:26 Dose: 100 mls/hr Lidocaine (Xylocaine-Mpf 2%) Confirm Administered Dose 5 ml .ROUTE .STK-MED ONE Stop: 05/14/19 07:21 Midazolam HCl (Versed 1 Mg/Ml) Confirm Administered Dose 2 mg .ROUTE .STK-MED ONE Stop: 05/14/19 07:22 Phenylephrine HCl (Phenylephrine In Ns 100 Mcg/Ml) Confirm Administered Dose 1 mg .ROUTE .STK-MED ONE Stop: 05/14/19 08:58 Propofol (Diprivan 20 Ml) Confirm Administered Dose 400 mg .ROUTE .STK-MED ONE Stop: 05/14/19 07:21 Propofol (Diprivan 20 Ml) Confirm Administered Dose 200 mg .ROUTE .STK-MED ONE Stop: 05/14/19 09:11 Tranexamic Acid (Cyklokapron) 2,000 mg IV ONETIME ONE Stop: 05/14/19 08:01 Last Admin: 05/14/19 11:21 Dose: Not Given Tranexamic Acid (Cyklokapron) Confirm Administered Dose 1,000 mg .ROUTE .STK- MED ONE Stop: 05/14/19 08:22 Tranexamic Acid (Cyklokapron) Confirm Administered Dose 1,000 mg .ROUTE .STK- MED ONE Stop: 05/14/19 08:24 - Exam General: Alert, Oriented, Cooperative, No Acute Distress Lungs: Clear to Auscultation, Normal Respiratory Effort Cardiovascular: Regular Rate, Regular Rhythm GI/Abdominal Exam: Normal Bowel Sounds, Soft, Non-Tender Back Exam: Normal Inspection, Full Range of Motion Extremities: Normal Inspection, Normal Range of Motion, Non-Tender, Pedal Edema (mild, +1 edema to BLE) Wound/Incisions: Dressing Dry and Intact (L hip) Neurological: No New Focal Deficit Psy/Mental Status: Alert, Normal Affect, Normal Mood Consult PN Assessment/Plan POD#: 1 Procedures: Procedures COMPLETE CBC AUTOMATED (11/19/18) COMPLETE CBC W/AUTO DIFF WBC (04/22/19) DRAIN/INJ JOINT/BURSA W/O US (09/28/18) ELECTROCARDIOGRAM TRACING (11/19/18) EMERGENCY DEPT VISIT (04/28/18) FLUOROSCOPY <1 HR PHYS/QHP (12/10/18) GLUCOSE BLOOD TEST (12/10/18) GLYCOSYLATED HEMOGLOBIN TEST (04/22/19) HEMATOCRIT (12/10/18) HEMOGLOBIN (12/10/18) METABOLIC PANEL TOTAL CA (04/22/19) NEEDLE LOCALIZATION BY XRAY (09/28/18) OFFICE/OUTPATIENT VISIT EST (11/19/18) OFFICE/OUTPATIENT VISIT NEW (07/05/17) PROTHROMBIN TIME (04/22/19) PT EVAL LOW COMPLEX 20 MIN (12/10/18) ROUTINE VENIPUNCTURE (04/22/19) THERAPEUTIC ACTIVITIES (12/10/18) THERAPEUTIC EXERCISES (12/10/18) URINALYSIS AUTO W/O SCOPE (04/22/19) URINALYSIS AUTO W/SCOPE (11/19/18) X-RAY EXAM CHEST 2 VIEWS (04/22/19) X-RAY EXAM HIP UNI 2-3 VIEWS (07/05/17) X-RAY EXAM HIPS BI 2 VIEWS (02/14/19) X-RAY EXAM OF FOOT (07/05/17) (1) S/P hip replacement SNOMED Code(s): 825288667, 872244882, 735975272, 731311922 Code(s): Z96.649 - PRESENCE OF UNSPECIFIED ARTIFICIAL HIP JOINT Qualifiers: Laterality: left Qualified Code(s): Z96.642 - Presence of left artificial hip joint (2) Diabetes mellitus type 2 in obese SNOMED Code(s): 19328110 Code(s): E11.69 - TYPE 2 DIABETES MELLITUS WITH OTHER SPECIFIED COMPLICATION ; E66.9 - OBESITY, UNSPECIFIED (3) Hypertension SNOMED Code(s): 97771678 Code(s): I10 - ESSENTIAL (PRIMARY) HYPERTENSION Qualifiers: Hypertension type: essential hypertension Qualified Code(s): I10 - Essential (primary) hypertension (4) Morbid obesity with BMI of 40.0-44.9, adult SNOMED Code(s): 711148470, 56444517498624 Code(s): E66.01 - MORBID (SEVERE) OBESITY DUE TO EXCESS CALORIES; Z68.41 - BODY MASS INDEX (BMI) 40.0-44.9, ADULT Problem List Initiated/Reviewed/Updated: Yes My Orders Last 24 Hours: My Active Orders 05/14/19 11:00 Blood Glucose Check, Bedside [RC] TIDAC Furosemide [Lasix] 20 mg PO DAILY PRN 05/14/19 11:30 Insulin Aspart [NovoLOG] See Protocol SUBCUT TIDAC 05/15/19 09:00 Lisinopril [Prinivil] 20 mg PO DAILY 05/16/19 05:11 BMP [BASIC METABOLIC PANEL,BMP] [CHEM] AM Plan: This 73 year old male admitted with L anterior hip arthroplasty, Hospitalist service consulted. 1. L anterior hip arthroplasty: Orders per Orthopedics 2. DM Type 2: Hold Oral agents, Novolog SSI monitor BS TIDAC. Blood sugars very well controlled. upon DC restart home medications. 3. HTN: Stable, continue Lisinopril. Monitor BMP. 4. Peripheral edema: Stable, Continue Lasix PRN. Encourage ambulation and Compression stockings. VTE prophylaxis: Recommended when Orthopedics deems appropriate. I did reach out to Dr Stanton, as patient was requesting Xarelto due to stomach upset from ASA. <Fer Paz - Last Filed: 05/15/19 16:32> - General Info Admission Dx/Problem (Free Text): I have seen and examined the patient independently of Ayanna Menjivar CNP. I have reviewed and agree with the plan of care as outlined for this patient by her. I have discussed the case with her. Please see orders. - Patient Data Vitals - Most Recent: Last Vital Signs Temp 36.6 C 05/15/19 07:15 Pulse 88 05/15/19 07:15 Resp 16 05/15/19 07:15 BP 147/67 H 05/15/19 08:02 Pulse Ox 94 L 05/15/19 07:15 I&O - Last 24 Hours: Intake & Output 05/15/19 05/15/19 05/15/19 06:59 14:59 22:59 Intake Total 1520 Output Total 1120 Balance 400 Lab Results Last 24 Hours: Laboratory Results - last 24 hr 05/14/19 05/15/19 05/15/19 Range/Units 17:11 06:02 06:24 Hgb 13.3 (13.0-17.0) g/dL Hct 41.9 (38.0-50.0) % Sodium (136-148) mmol/L Potassium (3.5-5.1) mmol/L Chloride (98-107) mmol/L Carbon Dioxide (21.0-32.0) mmol/L BUN (7.0-18.0) mg/dL Creatinine (0.8-1.3) mg/dL Est Cr Clr Drug Dosing mL/min Estimated GFR (MDRD) ml/min Glucose (74-106) mg/dL POC Glucose 133 H 113 H (60-110) mg/dL Calcium (8.5-10.1) mg/dL 05/15/19 Range/Units 06:24 Hgb (13.0-17.0) g/dL Hct (38.0-50.0) % Sodium 141 (136-148) mmol/L Potassium 3.9 (3.5-5.1) mmol/L Chloride 104 (98-107) mmol/L Carbon Dioxide 30.0 (21.0-32.0) mmol/L BUN 9 (7.0-18.0) mg/dL Creatinine 0.8 (0.8-1.3) mg/dL Est Cr Clr Drug Dosing 81.94 mL/min Estimated GFR (MDRD) > 60.0 ml/min Glucose 123 H (74-106) mg/dL POC Glucose (60-110) mg/dL Calcium 9.1 (8.5-10.1) mg/dL Med Orders - Current: Current Medications Discontinued Medications Hydrocodone Bitart/Acetaminophen (Alex 325-7.5 Mg) 1 - 2 tab PO Q4H PRN PRN Reason: Pain Last Admin: 05/15/19 08:08 Dose: 2 tab Al Hydroxide/Mg Hydroxide (Mag-Al Plus) 30 ml PO Q4H PRN PRN Reason: Indigestion Aspirin (Aspirin) 325 mg PO BID [facility] Last Admin: 05/15/19 08:21 Dose: Not Given Bisacodyl (Dulcolax) 10 mg RECTAL DAILY PRN PRN Reason: Constipation Cefazolin Sodium (Ancef) Confirm Administered Dose 2 gm .ROUTE .STK-MED ONE Stop: 05/14/19 07:43 Diphenhydramine HCl (Benadryl) 25 - 50 mg PO Q6H PRN PRN Reason: Itching Docusate Sodium (Colace) 100 mg PO BID PRN PRN Reason: Constipation Famotidine (Pepcid) 40 mg PO DAILY [facility] Last Admin: 05/15/19 08:02 Dose: 40 mg Fentanyl (Sublimaze) Confirm Administered Dose 100 mcg .ROUTE .STK-MED ONE Stop: 05/14/19 07:21 Furosemide (Lasix) 20 mg PO DAILY PRN PRN Reason: Edema Cefazolin Sodium/Dextrose 1 gm (/ Premix) 50 mls @ 100 mls/hr IV ONETIME ONE Stop: 05/14/19 08:29 Last Admin: 05/14/19 11:21 Dose: Not Given Sodium Chloride (Normal Saline) Confirm Administered Dose 20 mls @ as directed .ROUTE .STK-MED ONE Stop: 05/14/19 07:43 Cefazolin Sodium/Dextrose 2 gm (/ Premix) 50 mls @ 100 mls/hr IV Q8H [facility] Stop: 05/15/19 00:29 Last Admin: 05/14/19 23:26 Dose: 100 mls/hr Lactated Ringer's (Ringers, Lactated) 1,000 mls @ 100 mls/hr IV ASDIRECTED [facility] Last Admin: 05/14/19 16:30 Dose: 100 mls/hr Insulin Aspart (Novolog) 0 unit SUBCUT TIDAC [facility]; Protocol Last Admin: 05/15/19 07:49 Dose: Not Given Lidocaine (Xylocaine-Mpf 2%) Confirm Administered Dose 5 ml .ROUTE .STK-MED ONE Stop: 05/14/19 07:21 Lisinopril (Prinivil) 20 mg PO DAILY [facility] Last Admin: 05/15/19 08:02 Dose: 20 mg Midazolam HCl (Versed 1 Mg/Ml) Confirm Administered Dose 2 mg .ROUTE .STK-MED ONE Stop: 05/14/19 07:22 Morphine Sulfate (Morphine) 1 - 3 mg IVPUSH Q3H PRN PRN Reason: Pain Last Admin: 05/15/19 02:47 Dose: 2 mg Ondansetron HCl (Zofran) 4 mg IVPUSH Q6H PRN PRN Reason: Nausea/Vomiting Phenylephrine HCl (Phenylephrine In Ns 100 Mcg/Ml) Confirm Administered Dose 1 mg .ROUTE .STK-MED ONE Stop: 05/14/19 08:58 Polyethylene Glycol (Miralax) 17 gm PO DAILY [facility] Last Admin: 05/15/19 08:11 Dose: 17 gm Propofol (Diprivan 20 Ml) Confirm Administered Dose 400 mg .ROUTE .STK-MED ONE Stop: 05/14/19 07:21 Propofol (Diprivan 20 Ml) Confirm Administered Dose 200 mg .ROUTE .STK-MED ONE Stop: 05/14/19 09:11 Rivaroxaban (Xarelto) 10 mg PO DAILY [facility] Sodium Chloride (Saline Flush) 10 ml FLUSH ASDIRECTED PRN PRN Reason: Keep Vein Open Sodium Chloride (Saline Flush) 2.5 ml FLUSH ASDIRECTED PRN PRN Reason: Keep Vein Open Tranexamic Acid (Cyklokapron) 2,000 mg IV ONETIME ONE Stop: 05/14/19 08:01 Last Admin: 05/14/19 11:21 Dose: Not Given Tranexamic Acid (Cyklokapron) Confirm Administered Dose 1,000 mg .ROUTE .STK- MED ONE Stop: 05/14/19 08:22 Tranexamic Acid (Cyklokapron) Confirm Administered Dose 1,000 mg .ROUTE .STK- MED ONE Stop: 05/14/19 08:24 Consult PN Assessment/Plan Procedures: Procedures COMPLETE CBC AUTOMATED (11/19/18) COMPLETE CBC W/AUTO DIFF WBC (04/22/19) DRAIN/INJ JOINT/BURSA W/O US (09/28/18) ELECTROCARDIOGRAM TRACING (11/19/18) EMERGENCY DEPT VISIT (04/28/18) FLUOROSCOPY <1 HR PHYS/QHP (12/10/18) GLUCOSE BLOOD TEST (12/10/18) GLYCOSYLATED HEMOGLOBIN TEST (04/22/19) HEMATOCRIT (12/10/18) HEMOGLOBIN (12/10/18) METABOLIC PANEL TOTAL CA (04/22/19) NEEDLE LOCALIZATION BY XRAY (09/28/18) OFFICE/OUTPATIENT VISIT EST (11/19/18) OFFICE/OUTPATIENT VISIT NEW (07/05/17) PROTHROMBIN TIME (04/22/19) PT EVAL LOW COMPLEX 20 MIN (12/10/18) ROUTINE VENIPUNCTURE (04/22/19) THERAPEUTIC ACTIVITIES (12/10/18) THERAPEUTIC EXERCISES (12/10/18) URINALYSIS AUTO W/O SCOPE (04/22/19) URINALYSIS AUTO W/SCOPE (11/19/18) X-RAY EXAM CHEST 2 VIEWS (04/22/19) X-RAY EXAM HIP UNI 2-3 VIEWS (07/05/17) X-RAY EXAM HIPS BI 2 VIEWS (02/14/19) X-RAY EXAM OF FOOT (07/05/17)
[2019-05-16] MEDS ORDERED: Rivaroxaban 10 MG Tab PO SCH (09:41)
--- NOTE | 2019-05-16 11:29 | PCM.DCSUM1 ---
Discharge Summary - Hospital Course Brief History: patient was admitted for elective left hip arthroplasty. Diagnosis: Stroke: No - Discharge Data Discharge Date: 05/15/19 Discharge Disposition: Home, Self-Care 01 Condition: Good - Patient Summary/Data Operative Procedure(s) Performed: left anterior total hip arthroplasty Consults: Consultations 05/14/19 09:43 Consult to Physician [CONS] Routine PT Evaluation and Treatment [CONS] Routine Hospital Course: patient was admitted and underwent uneventful hip replacement.Postoperatively he was admitted to the floor were his pain was controlled and his diet was advanced. He did well postoperatively and essentially discharged home on postoperative day #1. Hemoglobin remained stable. - Patient Instructions Diet: Usual Diet as Tolerated Activity: Apply Ice, Full Weight Bearing Activity, Other: walker Driving: Do Not Drive Showering/Bathing: May Shower Wound/Incision Care: Keep Operative Site/Wound Site Clean and Dry, Do NOT Change Dressing Notify Provider of: Fever, Swelling and Redness, Drainage - Discharge Plan *PRESCRIPTION DRUG MONITORING PROGRAM REVIEWED*: No *COPY OF PRESCRIPTION DRUG MONITORING REPORT IN PATIENT GINA: No Home Medications: Home Meds Lisinopril 20 mg PO DAILY 04/28/18 [History] Pioglitazone HCl 30 mg PO DAILY 04/28/18 [History] metFORMIN [Glucophage XR] 1,000 mg PO BID 04/28/18 [History] Acetaminophen [Tylenol Arthritis] 650 mg PO QID PRN 12/05/18 [History] Calcium Citrate/Vitamin D3 [Citracal + D Maximum Caplet] 1 tab PO DAILY [History] Cinnamon Bark [Cinnamon] 500 mg PO BID 12/05/18 [History] Ferrous Sulfate [Iron] 65 mg PO DAILY 12/05/18 [History] Furosemide 20 mg PO DAILY PRN 12/05/18 [History] Omeprazole 20 mg PO ASDIRECTED 12/05/18 [History] Patient Handouts: Acetaminophen; Hydrocodone tablets or capsules, Rivaroxaban oral tablets, Total Hip Replacement, Care After, [id number], Docusate capsules , Aspirin capsules or tablets extended release Referrals: Carlotta Avila PA [Physician Bankruptcy Assistant] - 05/28/19 9:30 am - Discharge Summary/Plan Comment DC Time >30 min.: No - Patient Data Vitals - Most Recent: Last Vital Signs Temp 36.6 C 05/15/19 07:15 Pulse 88 05/15/19 07:15 Resp 16 05/15/19 07:15 BP 147/67 H 05/15/19 08:02 Pulse Ox 94 L 05/15/19 07:15 Weight - Most Recent: 133.81 kg Med Orders - Current: Current Medications Discontinued Medications Hydrocodone Bitart/Acetaminophen ([place] 325-7.5 Mg) 1 - 2 tab PO Q4H PRN PRN Reason: Pain Last Admin: 05/15/19 08:08 Dose: 2 tab Al Hydroxide/Mg Hydroxide (Mag-Al Plus) 30 ml PO Q4H PRN PRN Reason: Indigestion Aspirin (Aspirin) 325 mg PO BID [facility] Last Admin: 05/15/19 08:21 Dose: Not Given Bisacodyl (Dulcolax) 10 mg RECTAL DAILY PRN PRN Reason: Constipation Cefazolin Sodium (Ancef) Confirm Administered Dose 2 gm .ROUTE .STK-MED ONE Stop: 05/14/19 07:43 Diphenhydramine HCl (Benadryl) 25 - 50 mg PO Q6H PRN PRN Reason: Itching Docusate Sodium (Colace) 100 mg PO BID PRN PRN Reason: Constipation Famotidine (Pepcid) 40 mg PO DAILY [facility] Last Admin: 05/15/19 08:02 Dose: 40 mg Fentanyl (Sublimaze) Confirm Administered Dose 100 mcg .ROUTE .STK-MED ONE Stop: 05/14/19 07:21 Furosemide (Lasix) 20 mg PO DAILY PRN PRN Reason: Edema Cefazolin Sodium/Dextrose 1 gm (/ Premix) 50 mls @ 100 mls/hr IV ONETIME ONE Stop: 05/14/19 08:29 Last Admin: 05/14/19 11:21 Dose: Not Given Sodium Chloride (Normal Saline) Confirm Administered Dose 20 mls @ as directed .ROUTE .STK-MED ONE Stop: 05/14/19 07:43 Cefazolin Sodium/Dextrose 2 gm (/ Premix) 50 mls @ 100 mls/hr IV Q8H [facility] Stop: 05/15/19 00:29 Last Admin: 05/14/19 23:26 Dose: 100 mls/hr Lactated Ringer's (Ringers, Lactated) 1,000 mls @ 100 mls/hr IV ASDIRECTED [facility] Last Admin: 05/14/19 16:30 Dose: 100 mls/hr Insulin Aspart (Novolog) 0 unit SUBCUT TIDAC [facility]; Protocol Last Admin: 05/15/19 07:49 Dose: Not Given Lidocaine (Xylocaine-Mpf 2%) Confirm Administered Dose 5 ml .ROUTE .STK-MED ONE Stop: 05/14/19 07:21 Lisinopril (Prinivil) 20 mg PO DAILY [facility] Last Admin: 05/15/19 08:02 Dose: 20 mg Midazolam HCl (Versed 1 Mg/Ml) Confirm Administered Dose 2 mg .ROUTE .STK-MED ONE Stop: 05/14/19 07:22 Morphine Sulfate (Morphine) 1 - 3 mg IVPUSH Q3H PRN PRN Reason: Pain Last Admin: 05/15/19 02:47 Dose: 2 mg Ondansetron HCl (Zofran) 4 mg IVPUSH Q6H PRN PRN Reason: Nausea/Vomiting Phenylephrine HCl (Phenylephrine In Ns 100 Mcg/Ml) Confirm Administered Dose 1 mg .ROUTE .STK-MED ONE Stop: 05/14/19 08:58 Polyethylene Glycol (Miralax) 17 gm PO DAILY [facility] Last Admin: 05/15/19 08:11 Dose: 17 gm Propofol (Diprivan 20 Ml) Confirm Administered Dose 400 mg .ROUTE .STK-MED ONE Stop: 05/14/19 07:21 Propofol (Diprivan 20 Ml) Confirm Administered Dose 200 mg .ROUTE .STK-MED ONE Stop: 05/14/19 09:11 Rivaroxaban (Xarelto) 10 mg PO DAILY [facility] Sodium Chloride (Saline Flush) 10 ml FLUSH ASDIRECTED PRN PRN Reason: Keep Vein Open Sodium Chloride (Saline Flush) 2.5 ml FLUSH ASDIRECTED PRN PRN Reason: Keep Vein Open Tranexamic Acid (Cyklokapron) 2,000 mg IV ONETIME ONE Stop: 05/14/19 08:01 Last Admin: 05/14/19 11:21 Dose: Not Given Tranexamic Acid (Cyklokapron) Confirm Administered Dose 1,000 mg .ROUTE .STK- MED ONE Stop: 05/14/19 08:22 Tranexamic Acid (Cyklokapron) Confirm Administered Dose 1,000 mg .ROUTE .STK- MED ONE Stop: 05/14/19 08:24
== END 2019-05-15 11:15 | disposition home or self-care (01) | DRG 470 ==
LOC: MW.MS 06:36
PROVIDERS: ADMIT Orthopaedic Surgery; ATTEND Orthopaedic Surgery
PROC: 0SRB03A Replacement of Left Hip Joint with Ceramic Synthetic Substitute, Uncemented, Open Approach (ICD-10-PCS; principal; 2019-05-14)
DX: M16.12 Unilateral primary osteoarthritis, left hip (principal); I10 Essential (primary) hypertension; K21.9 Gastro-esophageal reflux disease without esophagitis; G25.81 Restless legs syndrome; E66.01 Morbid (severe) obesity due to excess calories; E11.9 Type 2 diabetes mellitus without complications; Z79.84 Long term (current) use of oral hypoglycemic drugs; Z87.442 Personal history of urinary calculi; Z98.49 Cataract extraction status, unspecified eye; Z68.41 Body mass index [BMI] 40.0-44.9, adult
CPT/HCPCS: 36415; 76000; 80048; 82962; 83735; 85014; 85018; 85025; 97110-GP; 97161-GP; 97530-GP; A9270-GY; C1776; J0690; J2001; J2250; J2270; J2370; J2704; J3010; J7120

== ENCOUNTER 2019-06-15 17:15 | Emergency (ER) | payer MEDICARE ==
[2019-06-15] MEDS ORDERED: Sodium Chloride 0.9% 2.5 ML Syringe FLUSH PRN (17:58)
[2019-06-15] MEDS ORDERED: Sodium Chloride 0.9% 10 ML Syringe FLUSH PRN (17:58)
--- NOTE | 2019-06-15 17:59 | EDM.PDOC ---
<Heydi Mirza - Last Filed: 06/15/19 19:57> ED HPI GENERAL MEDICAL PROBLEM - General Chief Complaint: Skin Complaint Stated Complaint: LT HIP;POSSIBLE INFECTION Time Seen by Provider: 06/15/19 17:51 - History of Present Illness INITIAL COMMENTS - FREE TEXT/NARRATIVE: This is Dr. Mirza dictating an addendum note as I been directly involved in this case and have spoken with Dr. Fong personally about our concerns. I agree with him that as his CBC Is normal, he doesn't have a fever he has no pain at the hip joint with movement and his lactate is normal this is likely a localized hematoma/seroma and as the patient is not sick or toxic that he can probably be followed more conservatively. The orthopedic surgeon told me that the patient is always welcome to come to the ER at [facility] otherwise he can be seen in the clinic on Monday by him. He said specificly said he had no intention of washing out the hip with the information he is being given which I agree, but he is aware of my concerns about the size of this fluid collection and the localized reaction and says that he is also concerned but would likely not drain that today if he did go to [facility]. His information for follow-up has been given to the patient as our only coverage in the clinic is a nurse practitioner. We have no orthopedic coverage at this time and is aware of this. The patient and family have been specific told about these conversations and have been cautioned about reasons to return to the ED and have been always given the option of going to [facility] and being received in the ED by their ER physician and the orthopedic surgeon if they feel that his symptoms are evolving or changing. The patient was also told that they're always welcome to return here if they have further concerns and be re- seen in the ED and reconsidered for further intervention. - Related Data Allergies Allergy/AdvReac Type Severity Reaction Status Date / Time erythromycin base Allergy Difficulty Verified 06/15/19 17:35 Breathing ibuprofen Allergy gastric Verified 06/15/19 17:35 bleeding promethazine Allergy Other Verified 06/15/19 17:35 Home Meds: Home Meds Lisinopril 20 mg PO DAILY 04/28/18 [History] Pioglitazone HCl 30 mg PO DAILY 04/28/18 [History] metFORMIN [Glucophage XR] 1,000 mg PO BID 04/28/18 [History] Acetaminophen [Tylenol Arthritis] 650 mg PO QID PRN 12/05/18 [History] Calcium Citrate/Vitamin D3 [Citracal + D Maximum Caplet] 1 tab PO DAILY [History] Cinnamon Bark [Cinnamon] 500 mg PO BID 12/05/18 [History] Ferrous Sulfate [Iron] 65 mg PO DAILY 12/05/18 [History] Furosemide 20 mg PO DAILY PRN 12/05/18 [History] Omeprazole 20 mg PO ASDIRECTED 12/05/18 [History] Course - Vital Signs Last Recorded V/S: Last Vital Signs Temp 97.5 F 06/15/19 20:03 Pulse 92 06/15/19 20:03 Resp 18 06/15/19 20:03 BP 145/61 H 06/15/19 20:03 Pulse Ox 95 06/15/19 20:03 - Orders/Labs/Meds Orders: Active Orders 24 hr Category Date Time Status CULTURE BLOOD [BC] Stat Lab 06/15/19 18:15 Received CULTURE BLOOD [BC] Stat Lab 06/15/19 19:05 Received CULTURE WOUND [RM] Stat Lab 06/15/19 18:53 Received ESR [SEDIMENTATION RATE AUTO] [HEME] Stat Lab 06/15/19 18:05 Received Sodium Chloride 0.9% [Saline Flush] Med 06/15/19 17:58 Active 10 ml FLUSH ASDIRECTED PRN Sodium Chloride 0.9% [Saline Flush] Med 06/15/19 17:58 Active 2.5 ml FLUSH ASDIRECTED PRN Blood Culture x2 Reflex Set [OM.PC] Stat Oth 06/15/19 17:58 Ordered Saline Lock Insert [OM.PC] Stat Oth 06/15/19 17:58 Ordered Medication Orders Sodium Chloride (Saline Flush) 10 ml FLUSH ASDIRECTED PRN PRN Reason: Keep Vein Open Sodium Chloride (Saline Flush) 2.5 ml FLUSH ASDIRECTED PRN PRN Reason: Keep Vein Open Labs: Laboratory Tests 06/15/19 06/15/19 06/15/19 Range/Units 18:15 18:15 18:15 WBC 9.35 (4.0-11.0) K/uL RBC 4.08 L (4.50-5.90) M/uL Hgb 13.0 (13.0-17.0) g/dL Hct 40.4 (38.0-50.0) % MCV 99.0 H (80.0-98.0) fL MCH 31.9 (27.0-32.0) pg MCHC 32.2 (31.0-37.0) g/dL RDW Std Deviation 48.9 (28.0-62.0) fl RDW Coeff of Shi 14 (11.0-15.0) % Plt Count 365 (150-400) K/uL MPV 9.60 (7.40-12.00) fL Neut % (Auto) 72.3 (48.0-80.0) % Lymph % (Auto) 14.7 L (16.0-40.0) % [place] % (Auto) 11.0 (0.0-15.0) % Eos % (Auto) 1.7 (0.0-7.0) % Baso % (Auto) 0.3 (0.0-1.5) % Neut # (Auto) 6.8 H (1.4-5.7) K/uL Lymph # (Auto) 1.4 (0.6-2.4) K/uL [place] # (Auto) 1.0 H (0.0-0.8) K/uL Eos # (Auto) 0.2 (0.0-0.7) K/uL Baso # (Auto) 0.0 (0.0-0.1) K/uL Nucleated RBC % 0.0 /100WBC Nucleated RBCs # 0 K/uL Lactate 1.2 (0.20-2.00) mmol/L Sodium 139 (136-148) mmol/L Potassium 4.2 (3.5-5.1) mmol/L Chloride 102 (98-107) mmol/L Carbon Dioxide 28.3 (21.0-32.0) mmol/L BUN 13 (7.0-18.0) mg/dL Creatinine 0.8 (0.8-1.3) mg/dL Est Cr Clr Drug Dosing 81.94 mL/min Estimated GFR (MDRD) > 60.0 ml/min Glucose 104 (74-106) mg/dL Calcium 9.1 (8.5-10.1) mg/dL Total Bilirubin 0.3 (0.2-1.0) mg/dL AST 10 L (15-37) IU/L ALT 19 (14-63) IU/L Alkaline Phosphatase 131 H (46-116) U/L C-Reactive Protein (0.00-0.90) mg/dL Total Protein 7.8 (6.4-8.2) g/dL Albumin 3.0 L (3.4-5.0) g/dL Globulin 4.8 H (2.6-4.0) g/dL Albumin/Globulin Ratio 0.6 L (0.9-1.6) 06/15/19 Range/Units 18:15 WBC (4.0-11.0) K/uL RBC (4.50-5.90) M/uL Hgb (13.0-17.0) g/dL Hct (38.0-50.0) % MCV (80.0-98.0) fL MCH (27.0-32.0) pg MCHC (31.0-37.0) g/dL RDW Std Deviation (28.0-62.0) fl RDW Coeff of Shi (11.0-15.0) % Plt Count (150-400) K/uL MPV (7.40-12.00) fL Neut % (Auto) (48.0-80.0) % Lymph % (Auto) (16.0-40.0) % [place] % (Auto) (0.0-15.0) % Eos % (Auto) (0.0-7.0) % Baso % (Auto) (0.0-1.5) % Neut # (Auto) (1.4-5.7) K/uL Lymph # (Auto) (0.6-2.4) K/uL Huron # (Auto) (0.0-0.8) K/uL Eos # (Auto) (0.0-0.7) K/uL Baso # (Auto) (0.0-0.1) K/uL Nucleated RBC % /100WBC Nucleated RBCs # K/uL Lactate (0.20-2.00) mmol/L Sodium (136-148) mmol/L Potassium (3.5-5.1) mmol/L Chloride (98-107) mmol/L Carbon Dioxide (21.0-32.0) mmol/L BUN (7.0-18.0) mg/dL Creatinine (0.8-1.3) mg/dL Est Cr Clr Drug Dosing mL/min Estimated GFR (MDRD) ml/min Glucose (74-106) mg/dL Calcium (8.5-10.1) mg/dL Total Bilirubin (0.2-1.0) mg/dL AST (15-37) IU/L ALT (14-63) IU/L Alkaline Phosphatase (46-116) U/L C-Reactive Protein 17.90 H (0.00-0.90) mg/dL Total Protein (6.4-8.2) g/dL Albumin (3.4-5.0) g/dL Globulin (2.6-4.0) g/dL Albumin/Globulin Ratio (0.9-1.6) Meds: Medications Generic Name Dose Route Start Last Admin Trade Name Freq PRN Reason Stop Dose Admin Sodium Chloride 10 ml 06/15/19 17:58 Saline Flush FLUSH ASDIRECTED PRN Keep Vein Open Sodium Chloride 2.5 ml 06/15/19 17:58 Saline Flush FLUSH ASDIRECTED PRN Keep Vein Open Discontinued Medications Generic Name Dose Route Start Last Admin Trade Name Freq PRN Reason Stop Dose Admin Ceftriaxone Sodium/Dextrose 1 50 mls @ 100 mls/hr 06/15/19 18:59 06/15/19 19: 18 gm/ Premix IV 06/15/19 19:28 100 mls/hr ONETIME ONE Administration Departure - Departure Disposition: Home, Self-Care 01 Clinical Impression: Post-operative infection Qualifiers: Encounter type: initial encounter Postoperative infection type: superficial incisional surgical site Qualified Code(s): T81.41XA - Infection following a procedure, superficial incisional surgical site, initial encounter - Discharge Information Referrals: Kashif Keita MD [Primary Care Provider] - Forms: ED Department Discharge Additional Instructions: The following information is given to patients seen in the emergency department who are being discharged to home. This information is to outline your options for follow-up care. We provide all patients seen in our emergency department with a follow-up referral. The need for follow-up, as well as the timing and circumstances, are variable depending upon the specifics of your emergency department visit. If you don't have a primary care physician on staff, we will provide you with a referral. We always advise you to contact your personal physician following an emergency department visit to inform them of the circumstance of the visit and for follow-up with them and/or the need for any referrals to a consulting specialist. The emergency department will also refer you to a specialist when appropriate. This referral assures that you have the opportunity for follow-up care with a specialist. All of these measure are taken in an effort to provide you with optimal care, which includes your follow-up. Under all circumstances we always encourage you to contact your private physician who remains a resource for coordinating your care. When calling for follow-up care, please make the office aware that this follow-up is from your recent emergency room visit. If for any reason you are refused follow-up, please contact the [facility] Emergency Department at and asked to speak to the emergency department charge nurse. [facility] Primary [facility] [address] [place] [id number] [facility] Specialty Care - Orthopedic Clinic Professional [address], [address] [place] [address] [facility]: Dr Fong [address] [place] [address] 1. Keep the skin, clean and dry. Continue to monitor the site closely. Take the antibiotic as directed. 2. Tylenol and/or Ibuprofen as needed for pain 3. Call the orthopedic's office on Monday for follow up. You may present to [facility] ER for re-evaluation as we did talk to Dr Fong ( Orthopedic provider). May call his office on Monday for an appointment. Your choice 4. Return to the ED as needed and as discussed. - My Orders Last 24 Hours: My Active Orders 06/15/19 17:58 Sodium Chloride 0.9% [Saline Flush] 10 ml FLUSH ASDIRECTED PRN Sodium Chloride 0.9% [Saline Flush] 2.5 ml FLUSH ASDIRECTED PRN Blood Culture x2 Reflex Set [OM.PC] Stat Saline Lock Insert [OM.PC] Stat 06/15/19 18:05 ESR [SEDIMENTATION RATE AUTO] [HEME] Stat 06/15/19 18:15 CULTURE BLOOD [BC] Stat 06/15/19 18:53 CULTURE WOUND [RM] Stat 06/15/19 19:05 CULTURE BLOOD [BC] Stat - Assessment/Plan Last 24 Hours: My Active Orders 06/15/19 17:58 Sodium Chloride 0.9% [Saline Flush] 10 ml FLUSH ASDIRECTED PRN Sodium Chloride 0.9% [Saline Flush] 2.5 ml FLUSH ASDIRECTED PRN Blood Culture x2 Reflex Set [OM.PC] Stat Saline Lock Insert [OM.PC] Stat 06/15/19 18:05 ESR [SEDIMENTATION RATE AUTO] [HEME] Stat 06/15/19 18:15 CULTURE BLOOD [BC] Stat 06/15/19 18:53 CULTURE WOUND [RM] Stat 06/15/19 19:05 CULTURE BLOOD [BC] Stat <Pretty Toney E - Last Filed: 06/15/19 20:08> ED HPI GENERAL MEDICAL PROBLEM - General Source of Information: Reports: Patient History Limitations: Reports: No Limitations - History of Present Illness INITIAL COMMENTS - FREE TEXT/NARRATIVE: HISTORY AND PHYSICAL: History of present illness: Patient is a 73-year-old male presenting to the emergency room for complaints of infection in his leg. Patient states that on May 14, 2019 Dr. Stanton did a left hip replacement. He states that around June 04 his skin started getting "irritated/reddened". He reports that it has gotten worse today to where it has been weeping yellow discharge. He states that the area is " stinging and burning" and that he had subjective chills today which he needed to use the "heating blanket" to keep warm. Denies any new injury, trauma or falls. Patient denies any fever, headache, change in vision, syncope or near syncope. Denies any chest pain, back pain, shortness of breath or cough. Denies any abdominal pain, nausea, vomiting, diarrhea, constipation or dysuria. Has not noted any blood in urine or stool. Patient has been eating and drinking appropriately. Review of systems: As per history of present illness and below otherwise all systems reviewed and negative. Past medical history: As per history of present illness and as reviewed below otherwise noncontributory. Surgical history: As per history of present illness and as reviewed below otherwise noncontributory. Social history: See social history for further information Family history: As per history of present illness and as reviewed below otherwise noncontributory. Physical exam: General: Patient is a well-nourished and well-developed 73-year-old male. Alert and orientated. Nontoxic in appearance and in no acute distress. Vital signs have been reviewed by me. HEENT: Atraumatic, normocephalic, pupils equal and reactive bilaterally, negative for conjunctival pallor or scleral icterus, mucous membranes moist, throat clear, neck supple, nontender, trachea midline. No drooling or trismus noted. No meningeal signs. No hot potato voice noted. Lungs: Clear to auscultation, breath sounds equal bilaterally, chest nontender. Heart: S1S2, regular rate and rhythm without overt murmur Abdomen: Soft, nondistended, nontender. Negative for masses or hepatosplenomegaly. Negative for costovertebral tenderness. Skin: Well approximated surgical incision on the left hip with noted erythema and edema, tenderness to palpation, otherwise warm, dry. No lesions or rashes noted. Extremities: See skin, otherwise moves all extremities per self without difficulty or deficits, negative for cords or calf pain. No pain with movement of the hip or flexion/extension. Strong pedal and pretibial pulses. Neurovascular unremarkable. Neuro: Awake, alert, oriented. Cranial nerves II through XII unremarkable. Cerebellum unremarkable. Motor and sensory unremarkable throughout. Exam nonfocal. Notes: X-ray shows intact bilateral total hip replacements. No periprosthetic fracture hardware loosening on the left. The ultrasound does show a complex over 8 cm collection within the lateral soft tissues of the left hip region. There are some echogenic internal elements which may relate to hemorrhage. Possible locules of internal gas. We do not have an orthopedic provider available to us today, next date of Ortho availability is June 28. Dr Fong, Orthopedic surgeon at [facility] , was consulted on this case. Myself and Dr Mirza spoke with this provider. He does not feel that this patient needs to be transferred. He states he would be willing to see this patient on Monday if they wanted for evaluation. Otherwise he would like them to follow-up with the nurse practitioner on Monday. All options were shared with the patient, and family member at bedside. They voice understanding are comfortable with the plan of care. I did give them [facility] and our orthopedic phone numbers. If at any time symptoms worsen or new symptoms develop did encourage them to return to the emergency room. Supportive care measures were reviewed and discussed. Voices understanding and is agreeable to plan of care. Denies any further questions or concerns at this time. Diagnostics: Soft tissue ultrasound of the left hip, CBC, CMP, Blood Culture, Lactic Therapeutics: Saline Lock, Rocephin Prescription: Keflex Impression: Post-Operative Infection Plan: 1. Keep the skin, clean and dry. Continue to monitor the site closely. Take the antibiotic as directed. 2. Tylenol and/or Ibuprofen as needed for pain 3. Call the orthopedic's office on Monday for follow up. You may present to [facility] ER for re-evaluation as we did talk to Dr Fong ( Orthopedic provider). 4. Return to the ED as needed and as discussed. Definitive disposition and diagnosis as appropriate pending reevaluation and review of above. Past Medical History HEENT History: Reports: Other (See Below) Other HEENT History: wears glasses Cardiovascular History: Reports: Hypertension Other Cardiovascular History: edema to lower extremities, wears conpressions socks, takes Lasix PRN Respiratory History: Reports: Other (See Below) Other Respiratory History: hx of bronchitis but states is not chronic, has prescribed inhaler but states has not used for "along time" Gastrointestinal History: Reports: GERD, GI Bleed Genitourinary History: Reports: Renal Calculus Musculoskeletal History: Reports: Fracture, Osteoarthritis Other Musculoskeletal History: hx fx wrist, collarbone and leg Neurological History: Reports: None, Other (See Below) Psychiatric History: Reports: Other (See Below) Other Psychiatric History: hx of claustrophobia Endocrine/Metabolic History: Reports: Diabetes, Type II, Obesity/BMI 30+ Hematologic History: Reports: Anemia, Iron Deficiency Immunologic History: Reports: None Oncologic (Cancer) History: Reports: None Dermatologic History: Reports: Other (See Below) Other Dermatologic History: fungus to "sweaty areas" - Past Surgical History Head Surgeries/Procedures: Reports: None HEENT Surgical History: Reports: Cataract Surgery, Tonsillectomy Cardiovascular Surgical History: Reports: None Respiratory Surgical History: Reports: None GI Surgical History: Reports: Colonoscopy, EGD Male Surgical History: Reports: None Neurological Surgical History: Reports: None Musculoskeletal Surgical History: Reports: Hip Replacement Oncologic Surgical History: Reports: None Dermatological Surgical History: Reports: None Social & Family History - Family History Family Medical History: Noncontributory - Tobacco Use Smoking Status *Q: Never Smoker - Caffeine Use Caffeine Use: Reports: Soda - Recreational Drug Use Recreational Drug Use: No ED ROS GENERAL - Review of Systems Review Of Systems: ROS reveals no pertinent complaints other than HPI. ED EXAM, SKIN/RASH Exam: See Below (See dictation) Course - Orders/Labs/Meds Labs: Laboratory Tests 06/15/19 06/15/19 06/15/19 Range/Units 18:15 18:15 18:15 WBC 9.35 (4.0-11.0) K/uL RBC 4.08 L (4.50-5.90) M/uL Hgb 13.0 (13.0-17.0) g/dL Hct 40.4 (38.0-50.0) % MCV 99.0 H (80.0-98.0) fL MCH 31.9 (27.0-32.0) pg MCHC 32.2 (31.0-37.0) g/dL RDW Std Deviation 48.9 (28.0-62.0) fl RDW Coeff of Shi 14 (11.0-15.0) % Plt Count 365 (150-400) K/uL MPV 9.60 (7.40-12.00) fL Neut % (Auto) 72.3 (48.0-80.0) % Lymph % (Auto) 14.7 L (16.0-40.0) % [place] % (Auto) 11.0 (0.0-15.0) % Eos % (Auto) 1.7 (0.0-7.0) % Baso % (Auto) 0.3 (0.0-1.5) % Neut # (Auto) 6.8 H (1.4-5.7) K/uL Lymph # (Auto) 1.4 (0.6-2.4) K/uL [place] # (Auto) 1.0 H (0.0-0.8) K/uL Eos # (Auto) 0.2 (0.0-0.7) K/uL Baso # (Auto) 0.0 (0.0-0.1) K/uL Nucleated RBC % 0.0 /100WBC Nucleated RBCs # 0 K/uL Lactate 1.2 (0.20-2.00) mmol/L Sodium 139 (136-148) mmol/L Potassium 4.2 (3.5-5.1) mmol/L Chloride 102 (98-107) mmol/L Carbon Dioxide 28.3 (21.0-32.0) mmol/L BUN 13 (7.0-18.0) mg/dL Creatinine 0.8 (0.8-1.3) mg/dL Est Cr Clr Drug Dosing 81.94 mL/min Estimated GFR (MDRD) > 60.0 ml/min Glucose 104 (74-106) mg/dL Calcium 9.1 (8.5-10.1) mg/dL Total Bilirubin 0.3 (0.2-1.0) mg/dL AST 10 L (15-37) IU/L ALT 19 (14-63) IU/L Alkaline Phosphatase 131 H (46-116) U/L C-Reactive Protein (0.00-0.90) mg/dL Total Protein 7.8 (6.4-8.2) g/dL Albumin 3.0 L (3.4-5.0) g/dL Globulin 4.8 H (2.6-4.0) g/dL Albumin/Globulin Ratio 0.6 L (0.9-1.6) 06/15/19 Range/Units 18:15 WBC (4.0-11.0) K/uL RBC (4.50-5.90) M/uL Hgb (13.0-17.0) g/dL Hct (38.0-50.0) % MCV (80.0-98.0) fL MCH (27.0-32.0) pg MCHC (31.0-37.0) g/dL RDW Std Deviation (28.0-62.0) fl RDW Coeff of Shi (11.0-15.0) % Plt Count (150-400) K/uL MPV (7.40-12.00) fL Neut % (Auto) (48.0-80.0) % Lymph % (Auto) (16.0-40.0) % [place] % (Auto) (0.0-15.0) % Eos % (Auto) (0.0-7.0) % Baso % (Auto) (0.0-1.5) % Neut # (Auto) (1.4-5.7) K/uL Lymph # (Auto) (0.6-2.4) K/uL [place] # (Auto) (0.0-0.8) K/uL Eos # (Auto) (0.0-0.7) K/uL Baso # (Auto) (0.0-0.1) K/uL Nucleated RBC % /100WBC Nucleated RBCs # K/uL Lactate (0.20-2.00) mmol/L Sodium (136-148) mmol/L Potassium (3.5-5.1) mmol/L Chloride (98-107) mmol/L Carbon Dioxide (21.0-32.0) mmol/L BUN (7.0-18.0) mg/dL Creatinine (0.8-1.3) mg/dL Est Cr Clr Drug Dosing mL/min Estimated GFR (MDRD) ml/min Glucose (74-106) mg/dL Calcium (8.5-10.1) mg/dL Total Bilirubin (0.2-1.0) mg/dL AST (15-37) IU/L ALT (14-63) IU/L Alkaline Phosphatase (46-116) U/L C-Reactive Protein 17.90 H (0.00-0.90) mg/dL Total Protein (6.4-8.2) g/dL Albumin (3.4-5.0) g/dL Globulin (2.6-4.0) g/dL Albumin/Globulin Ratio (0.9-1.6) Meds: Medications Generic Name Dose Route Start Last Admin Trade Name Freq PRN Reason Stop Dose Admin Sodium Chloride 10 ml 06/15/19 17:58 Saline Flush FLUSH ASDIRECTED PRN Keep Vein Open Sodium Chloride 2.5 ml 06/15/19 17:58 Saline Flush FLUSH ASDIRECTED PRN Keep Vein Open Discontinued Medications Generic Name Dose Route Start Last Admin Trade Name Freq PRN Reason Stop Dose Admin Ceftriaxone Sodium/Dextrose 1 50 mls @ 100 mls/hr 06/15/19 18:59 06/15/19 19: 18 gm/ Premix IV 06/15/19 19:28 100 mls/hr ONETIME ONE Administration Departure - Departure Time of Disposition: 19:48
[2019-06-15 18:45] LABS: BLOOD UREA NITROGEN,BUN 13 mg/dL (7.0-18.0); CARBON DIOXIDE,CO2 28.3 mmol/L (21.0-32.0); CHLORIDE,CL 102 mmol/L (98-107); GLUCOSE RANDOM 104 mg/dL (74-106); POTASSIUM,K 4.2 mmol/L (3.5-5.1); SODIUM,NA 139 mmol/L (136-148)
[2019-06-15] MEDS ORDERED: cefTRIAXone 1 GM in Premix Bag 1 BAG IV ONE (18:59)
--- NOTE | 2019-06-15 19:02 | US ---
HISTORY: Left lateral hip redness. TECHNIQUE: Ultrasound of the soft tissues of the left hip region. COMPARISON: Radiographs 06/15/2019 and 05/28/2019. FINDINGS: Complex fluid collection is present involving the left lateral hip region. This measures approximately 8.4 x 5 x 5 cm in size. It demonstrates some internal echogenic elements which may relate to hemorrhage. It underlies the patient`s incision and extends to within a cm of the skin surface. Possible small amount of gas within the collection. IMPRESSION: Complex over 8 cm collection within the lateral soft tissues of the left hip region. There are some echogenic internal elements which may relate to hemorrhage. Possible locules of internal gas. Dictated by Loco Doe MD @ 06/15/2019 6:59:44 PM Dictated by: Loco Doe MD @ 06/15/2019 19:00:09 (Electronically Signed)
--- NOTE | 2019-06-15 19:11 | CR ---
HISTORY: Hip replacement. TECHNIQUE: AP pelvis and 2 views of the left hip. COMPARISON: 05/28/2019. FINDINGS: Intact total hip replacement on the left. Components appear appropriately seated. There is no periprosthetic fracture or hardware loosening. Intact right total hip replacement. Degenerative changes of the spine. IMPRESSION: 1. Intact bilateral total hip replacements. 2. No periprosthetic fracture or hardware loosening on the left. Dictated by Loco Doe MD @ 06/15/2019 7:08:43 PM Dictated by: Loco Doe MD @ 06/15/2019 19:08:47 (Electronically Signed)
== END 2019-06-15 20:15 | disposition home or self-care (01) ==
LOC: MW.ED 17:15
DX: T81.41XA Infection following a procedure, superficial incisional surgical site, initial encounter (principal); I10 Essential (primary) hypertension; K21.9 Gastro-esophageal reflux disease without esophagitis; E11.9 Type 2 diabetes mellitus without complications; E66.9 Obesity, unspecified; Z68.41 Body mass index [BMI] 40.0-44.9, adult; Z96.642 Presence of left artificial hip joint; Z79.899 Other long term (current) drug therapy; Z88.1 Allergy status to other antibiotic agents; Z88.6 Allergy status to analgesic agent; Z88.8 Allergy status to other drugs, medicaments and biological substances; Y83.8 Other surgical procedures as the cause of abnormal reaction of the patient, or of later complication, without mention of misadventure at the time of the procedure
CPT/HCPCS: 36415; 73502; 76857; 80053; 83605; 85025; 85652; 86140; 87040; 87070; 87077; 96365; 99284; J0696; 87186